=== PATIENT | male | born 1950 | race Caucasian/White ===

== ENCOUNTER 2018-07-26 13:16 | Inpatient (IN) | payer MEDICARE ==
[~2018-07-26] VITALS: Ht 177.8 cm; Wt 103.0 kg
[~2018-07-26 13:16] MED LIST: ALTACE10 MG PO; ASPIR 8181 MG PO; ATORVASTATIN CA20 MG PO; COUMADIN2.5 MG PO; FENOFIBRATE160 MG PO; GEMFIBROZIL600 MG PO; LASIX40 MG PO; LEVOTHROID125 MCG PO; MELOXICAM7.5 MG PO; METOPROLOL SUCC50 MG PO; ULTRAM50 MG PO; WARFARIN SODIUM3 MG PO; XARELTO20 MG PO
[2018-07-26 14:25] LABS: BASOPHILS # (AUTO) 0.1 (0.0-0.1); BASOPHILS % 1.1 % (0.0-1.0); EOSINOPHILS # (AUTO) 0.5 (0.0-0.4); EOSINOPHILS % 5.6 % (0.0-6.0); HEMATOCRIT 46.4 % (38.2-49.6); HEMOGLOBIN 16.2 g/dL (14.0-18.0); LYMPHOCYTES # (AUTO) 1.7 (1.0-3.2); LYMPHOCYTES % 20.6 % (18.0-39.1); MEAN CORPUSCULAR HEMOGLOBIN 29.7 pg (28-32); MEAN CORPUSCULAR HGB CONC 34.9 g/dL (31-35); MEAN CORPUSCULAR VOLUME 85.1 fL (81-99); MONOCYTES # (AUTO) 0.9 (0.2-0.8); MONOCYTES % 10.3 % (4.4-11.3); NEUTROPHILS # (AUTO) 5.2 (2.1-6.9); NEUTROPHILS % 61.9 % (38.7-80.0); PLATELET COUNT 369 x10e3/uL (140-360); RED BLOOD COUNT 5.45 x10e6/uL (4.3-5.7); RED CELL DISTRIBUTION WIDTH 13.4 % (11.7-14.4)
[2018-07-26 14:37] LABS: CLARITY,URINE CLEAR (CLEAR); COLOR,URINE YELLOW (YELLOW)
[2018-07-26 14:38] LABS: BILIRUBIN,URINE NEGATIVE (NEGATIVE); KETONES,URINE NEGATIVE (NEGATIVE); LEUKOCYTE ESTERASE ,URINE NEGATIVE (NEGATIVE); NITRITE,URINE NEGATIVE (NEGATIVE); PROTEIN,URINE DIPSTICK NEGATIVE (NEGATIVE); URINE UROBILINOGEN 0.2 mg/dL (0.2 - 1)
[2018-07-26 14:46] LABS: ANION GAP 24.3 mmol/L (8-16); CALCIUM 11.2 mg/dL (8.4-10.2); CREATININE, SERUM 2.7 mg/dL (0.72-1.25); POTASSIUM 4.3 mmol/L (3.5-5.1)
[2018-07-26 14:52] LABS: BACTERIA,URINE FEW /HPF; EPITHELIAL CELLS,URINE RARE /LPF
[2018-07-26 14:53] LABS: CALCIUM OXALATE CRYSTALS,UR FEW (FEW); TRANSITIONAL EPI CELLS,URINE RARE
[2018-07-26 14:56] LABS: CREATINE KINASE MB 1.7 ng/mL (0-5.0)
[2018-07-26] MEDS ORDERED: WARFARIN SODIUM2 MG PO (15:03)
[2018-07-26] MEDS ORDERED: Entresto PO (15:03)
[2018-07-26] MEDS ORDERED: AMIODARONE HCL200 MG PO (15:03)
[2018-07-26] MEDS ORDERED: WARFARIN SODIUM1 MG PO (15:03)
[2018-07-26 15:49] LABS: ABG HCO3 25 mmol/L (23-28); ABG PCO2 28 mmHg (41-51); ABG PH 7.56 (7.31-7.41); ABG PO2 76 mmHg (80-105)
--- NOTE | 2018-07-26 15:53 | Diagnostic Imaging Report ---
EXAM: CT CHEST WO DATE: 07/26/2018 1:50 PM INDICATION: \S\ARGUETA \[id number] \S\1535 shortness of breath. Weakness. COMPARISON: None FINDINGS: Please see same day CT abdomen for images and report. IMPRESSION: As above. Signed by: Dr. Maxwell Koo MD on 07/26/2018 3:50 PM
--- NOTE | 2018-07-26 16:00 | Diagnostic Imaging Report ---
EXAM: CT Chest, Abdomen and Pelvis WITHOUT contrast INDICATION: Weakness. Shortness of breath. COMPARISON: None. TECHNIQUE: Chest, Abdomen and Pelvis was scanned utilizing a multidetector helical scanner without the use of IV contrast. Coronal and sagittal reformations were obtained. Reformatted axial MIP images were obtained and reviewed. IV CONTRAST: None COMPLICATIONS: None RADIATION DOSE: Total DLP: 1062 mGy*cm Estimated effective dose: (DLP x 0.015 x size factor) mSv CTDIvol has been reviewed. It is below the limits set by the Radiation Protocol Committee (RPC). Appropriate CT dose reduction techniques were utilized. FINDINGS: Chest: Lower Neck: Left chest wall ICD with leads right atrial appendage and right ventricular apex. Heart and Great Vessels: The aorta and main pulmonary artery measure 37 and 29 mm. respectively. No pericardial effusion. Advanced coronary artery calcifications, poorly evaluated due to motion. Aberrant right subclavian artery incidentally noted. AP diameter left atrium 61 mm. Lymph Nodes: No suspicious mediastinal adenopathy by size criteria. The hilar regions are sub-optimally evaluated given lack of IV contrast. Lungs: No pneumothorax or pleural effusion present. Trachea and central bronchi are unremarkable. Scattered geographic groundglass opacities in the mid and lower lungs with subpleural reticulation in the right lower lobe and mild basilar bronchiectasis, most notably in the right lower lobe. Lack of prone imaging limits evaluation. Abdomen: Solid Organs: Gallstones present. Ill-defined calcification posterior aspect right hepatic lobe. Otherwise, nonenhanced images solid organs grossly unremarkable. Upper GI Tract: Decompressed stomach limits evaluation. No small bowel obstructive changes. Vascularity: Moderate aortic vascular calcifications with no aneurysm. Lymph Nodes: Minimal haziness central mesentery with scattered small lymph nodes. Other: Atherosclerotic changes mesenteric arteries. Pelvis: Bladder: Unremarkable. Other: Prostate not enlarged. Colon: Colonic evaluation limited given lack of enteric contrast. There is an area of questioned soft tissue fullness in the rectum. Appendix not inflamed. Bones: Advanced degenerative changes lumbar spine. IMPRESSION: 1. Poorly evaluated soft tissue fullness of the rectum. Direct visualization recommended as malignancy not excluded. 2. Scattered geographic groundglass opacities in the mid and lower lungs with bronchial wall thickening and mild bronchiectasis, most notably right lower lobe. Sequela of recurrent microaspiration or interstitial lung disease, such as fibrotic NSIP, could have similar imaging characteristics. Correlation recommended. High-resolution chest CT would be helpful for further evaluation. 3. Advanced coronary artery vascular calcifications and left atrial enlargement. 4. Cholelithiasis. Signed by: Dr. Maxwell Koo MD on 07/26/2018 3:57 PM
[2018-07-26] MEDS ORDERED: AZITHROMYCIN 500MG/SOD CHL 0.9% 250ML BAG IV SCH (17:30)
[2018-07-26] MEDS ORDERED: ASPIRIN 81 MG CHEW TAB PO ONE (17:30)
[2018-07-26] MEDS ORDERED: LEVOFLOXACIN 750MG/DEXTROSE PREMIX BAG 150ML IV SCH (17:30)
[2018-07-26] MEDS ORDERED: LEVOFLOXACIN 750MG/D5W 150ML 150 ML IV SCH (17:45)
[2018-07-26] MEDS: AZITHROMYCIN 500MG/NS 250 ML 250 ML IV SCH (20:01)
[2018-07-26 21:00] VITALS: BP 102/72
[2018-07-26 23:02] LABS: CREATINE KINASE MB 1.3 ng/mL (0-5.0)
[2018-07-26 23:26] VITALS: BP 102/72
[2018-07-26 23:46] VITALS: BP 102/72
[2018-07-27] VITALS (9 sets, daily range): BP systolic 84–112; BP diastolic 49–62
[2018-07-27 05:00] LABS: BASOPHILS % 0.5 % (0.0-1.0); EOSINOPHILS # (AUTO) 0.4 (0.0-0.4); HEMATOCRIT 37.3 % (38.2-49.6); HEMOGLOBIN 13.1 g/dL (14.0-18.0); LYMPHOCYTES # (AUTO) 1.5 (1.0-3.2); LYMPHOCYTES % 20.9 % (18.0-39.1); MEAN CORPUSCULAR HEMOGLOBIN 30.4 pg (28-32); MEAN CORPUSCULAR HGB CONC 35.1 g/dL (31-35); MEAN CORPUSCULAR VOLUME 86.5 fL (81-99); MONOCYTES # (AUTO) 0.6 (0.2-0.8); NEUTROPHILS # (AUTO) 4.7 (2.1-6.9); NEUTROPHILS % 64.1 % (38.7-80.0); PLATELET COUNT 239 x10e3/uL (140-360); RED BLOOD COUNT 4.31 x10e6/uL (4.3-5.7); RED CELL DISTRIBUTION WIDTH 13.5 % (11.7-14.4)
[2018-07-27 05:36] LABS: CREATINE KINASE MB 1.2 ng/mL (0-5.0)
[2018-07-27] MEDS ORDERED: WARFARIN SOD 2 MG TAB PO SCH (07:00)
[2018-07-27 08:00] LABS: INR 1.86; PROTHROMBIN TIME 22.9 seconds (11.9-14.5)
[2018-07-27] MEDS: SODIUM CHLORIDE 0.9% 1000ML 1,000 ML IV SCH (08:00)
[2018-07-27] MEDS: FAMOTIDINE 20 MG TAB PO SCH ×2 (08:00→16:44)
[2018-07-27] MEDS: ASPIRIN 81 MG CHEW TAB PO SCH (08:00)
[2018-07-27] MEDS: FENOFIBRATE 145 MG TAB PO SCH (08:00)
[2018-07-27] MEDS: METHYLPREDNISOLONE SOD SUCC 40 MG/ML VIAL IV SCH (08:00)
[2018-07-27] MEDS: AMIODARONE HCL 200 MG TAB PO SCH (08:00)
--- NOTE | 2018-07-27 08:08 | History and Physical ---
PRIMARY CARE PHYSICIAN: Dr. Ramirez TIMBER INCISOR OPERATOR: Dr. Dick CHIEF COMPLAINT: Shortness of breath and weakness. HISTORY OF PRESENT ILLNESS: This is a 68-year-old man with a history of atrial fibrillation, now developing shortness of breath and weakness for the past week. No cough. No fever, chills, nausea, vomiting, diarrhea. No leg edema. He also noticed blood pressure was . He was found to have pulmonary findings with ground-glass opacities and signs of pneumonia. He was admitted for further evaluation and management. PAST MEDICAL HISTORY: Atrial fibrillation on anticoagulation with Coumadin, systolic congestive heart failure with status post AICD placement, hypertension, myocardial infarction in 2005, status post 4 coronary stents, hypothyroidism, hyperlipidemia, cigarette use. PAST SURGICAL HISTORY: AICD placement, coronary stent placement x4 in 2005, and left knee replacement. ALLERGIES: PER ELECTRONIC MEDICAL RECORDS. FAMILY HISTORY/SOCIAL HISTORY: Patient is . He has 2 children. Occasional alcohol. No illicits. He quit cigarettes in 2005. 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 MEDICATIONS: Per electronic medical record. REVIEW OF SYSTEMS: Denies any dizziness, chest pain. Denies any fever, sweats, nausea, vomiting, diarrhea, leg pain, back pain, headache, vision changes. PHYSICAL EXAMINATION VITAL SIGNS: Reviewed. GENERAL: A tired-appearing man resting in bed. HEENT: Anicteric. Pupils respond to light. No oral lesions. CARDIOVASCULAR: Normal S1, S2. LUNGS: He has reduced breath sounds throughout. ABDOMEN: Soft, nontender, nondistended. EXTREMITIES: No edema or calf tenderness. NEUROLOGIC: Alert and oriented x3. Moves all extremities. SKIN: Dry. PSYCHIATRIC: Normal affect. LABS: Reviewed. MEDICATIONS: Reviewed. ASSESSMENT AND PLAN: This is a 68-year-old man. 1. Pneumonia. 2. Pneumonitis. 3. Hypotension. 4. Hyponatremia. 5. Atrial fibrillation. 6. Systolic congestive heart failure, which is euvolemic. 7. Acute kidney injury. 8. Hyperlipidemia. 9. Hypothyroidism. 10. Obesity. PLAN 1. Broad-spectrum antibiotic. 2. Obtain sputum culture. 3. Urine for Strep and Legionella antigen. 4. Start steroid therapy for pneumonitis. 5. Hold Lasix. 6. Give some fluids for acute kidney injury. 7. Monitor fluid status. 8. Obtain brain natriuretic peptide to assist in managing fluid status. 9. Obtain labs later today for basic metabolic panel. 10. Obtain INR daily. 11. Add Pepcid for GI prophylaxis, on anticoagulation. 12. Follow closely. 13. Follow up labs. Job#: [id number] CQ
[2018-07-27] MEDS ORDERED: FUROSEMIDE 40 MG TAB PO SCH (09:00)
[2018-07-27] MEDS ORDERED: METOPROLOL SUCCINATE 50 MG TAB XL PO SCH (09:00)
[2018-07-27] MEDS ORDERED: LEVOTHYROXINE SODIUM 125 MCG TAB PO SCH (09:00)
[2018-07-27] MEDS ORDERED: NON-FORMULARY MEDICATION (Fenofibrate 160 MG) PO SCH (09:00)
[2018-07-27] MEDS ORDERED: SODIUM CHLORIDE 0.9% 500ML 500 ML IV ONE (12:45)
--- NOTE | 2018-07-27 12:53 | Diagnostic Imaging Report ---
EXAM: Bilateral Renal Ultrasound INDICATION: MARIA ELENA vs CKD COMPARISON: CT Abdomen/Pelvis 07/26/18. TECHNIQUE: Transverse and longitudinal images of the kidneys and bladder were obtained. FINDINGS: Right Kidney: Length: Right kidney measures 12 cm Appearance: Normal echogenicity. Collecting system: No hydronephrosis Stones: None Cyst/Mass: None Left Kidney: Length: Left kidney measures 12.1 cm Appearance: Normal echogenicity. Collecting system: No hydronephrosis Stones: None Cyst/Mass: None Bladder: Unremarkable in appearance. Bilateral ureteral jets are not seen. Prostate: Unremarkable in appearance. Total volume is 15.2 cc. IMPRESSION: Unremarkable bilateral renal ultrasound. Signed by: Dr. Alena Mueller MD on 07/27/2018 12:50 PM
[2018-07-27 14:13] LABS: CREATINE KINASE MB 1.1 ng/mL (0-5.0)
[2018-07-27 15:19] LABS: ANION GAP 18.4 mmol/L (8-16); CALCIUM 9.5 mg/dL (8.4-10.2); CREATININE, SERUM 2.43 mg/dL (0.72-1.25); POTASSIUM 3.4 mmol/L (3.5-5.1)
[2018-07-27] MEDS: WARFARIN SOD 2 MG TAB PO SCH (16:44)
[2018-07-27] MEDS: AZITHROMYCIN 500MG/NS 250 ML 250 ML IV SCH (16:45)
[2018-07-27] MEDS ORDERED: ATORVASTATIN 20 MG TAB PO SCH (21:00)
[2018-07-28] VITALS (7 sets, daily range): BP systolic 96–166; BP diastolic 55–69
[2018-07-28] MEDS: LEVOTHYROXINE SODIUM 125 MCG TAB PO SCH (05:22)
[2018-07-28 05:41] LABS: BASOPHILS % 0.4 % (0.0-1.0); EOSINOPHILS % 0.3 % (0.0-6.0); HEMATOCRIT 35.8 % (38.2-49.6); HEMOGLOBIN 12.2 g/dL (14.0-18.0); LYMPHOCYTES # (AUTO) 1.2 (1.0-3.2); LYMPHOCYTES % 10.2 % (18.0-39.1); MEAN CORPUSCULAR HEMOGLOBIN 30.1 pg (28-32); MEAN CORPUSCULAR HGB CONC 34.1 g/dL (31-35); MEAN CORPUSCULAR VOLUME 88.4 fL (81-99); MONOCYTES # (AUTO) 0.6 (0.2-0.8); MONOCYTES % 5.7 % (4.4-11.3); NEUTROPHILS # (AUTO) 9.4 (2.1-6.9); PLATELET COUNT 237 x10e3/uL (140-360); RED BLOOD COUNT 4.05 x10e6/uL (4.3-5.7); RED CELL DISTRIBUTION WIDTH 13.3 % (11.7-14.4)
[2018-07-28 05:56] LABS: INR 1.93; PROTHROMBIN TIME 23.6 seconds (11.9-14.5)
[2018-07-28 06:05] LABS: ANION GAP 15.3 mmol/L (8-16); CALCIUM 9.7 mg/dL (8.4-10.2); CREATININE, SERUM 1.78 mg/dL (0.72-1.25); POTASSIUM 3.3 mmol/L (3.5-5.1)
[2018-07-28] MEDS: FAMOTIDINE 20 MG TAB PO SCH ×2 (08:00→16:30)
[2018-07-28] MEDS: METHYLPREDNISOLONE SOD SUCC 40 MG/ML VIAL IV SCH (08:00)
[2018-07-28] MEDS: AMIODARONE HCL 200 MG TAB PO SCH (08:00)
[2018-07-28] MEDS: ASPIRIN 81 MG CHEW TAB PO SCH (08:00)
[2018-07-28] MEDS: FENOFIBRATE 145 MG TAB PO SCH (08:00)
[2018-07-28] MEDS ORDERED: POTASSIUM CHLORIDE 20 MEQ TAB CR PO STA (10:06)
[2018-07-28] MEDS: SODIUM CHLORIDE 0.9% 1000ML 1,000 ML IV SCH (11:30)
[2018-07-28] MEDS ORDERED: INFLUENZA VIRUS VAC SPLIT INJ 0.5 ML SYR IM NR (12:45)
[2018-07-28] MEDS ORDERED: PNEUMOCOCCAL VACCINE POLYVALENT 23 MCG/0.5 ML VIAL IM NR (12:45)
[2018-07-28] MEDS ORDERED: SODIUM CHLORIDE 0.9% 1000ML 1,000 ML ONE (16:23)
[2018-07-28] MEDS ORDERED: SODIUM CHLORIDE 0.9% 1000ML 1,000 ML IV SCH (16:30)
[2018-07-28] MEDS: WARFARIN SOD 2 MG TAB PO SCH (16:37)
[2018-07-28] MEDS ORDERED: INFLUENZA VIRUS VAC SPLIT INJ 0.5 ML SYR IM ONE (17:00)
[2018-07-28] MEDS ORDERED: PNEUMOCOCCAL VACCINE POLYVALENT 23 MCG/0.5 ML VIAL IM ONE (17:00)
[2018-07-28] MEDS: AZITHROMYCIN 500MG/NS 250 ML 250 ML IV SCH (17:45)
[2018-07-28] MEDS ORDERED: ATORVASTATIN 10 MG TAB PO SCH (21:00)
[2018-07-29] VITALS: BP 111/58
[2018-07-29 05:00] VITALS: BP 115/63
[2018-07-29] MEDS: LEVOTHYROXINE SODIUM 125 MCG TAB PO SCH (05:52)
[2018-07-29 06:14] LABS: BASOPHILS % 0.3 % (0.0-1.0); EOSINOPHILS % 0.2 % (0.0-6.0); HEMATOCRIT 35.8 % (38.2-49.6); HEMOGLOBIN 12.1 g/dL (14.0-18.0); LYMPHOCYTES # (AUTO) 1.3 (1.0-3.2); LYMPHOCYTES % 9.7 % (18.0-39.1); MEAN CORPUSCULAR HEMOGLOBIN 30.3 pg (28-32); MEAN CORPUSCULAR HGB CONC 33.8 g/dL (31-35); MEAN CORPUSCULAR VOLUME 89.7 fL (81-99); MONOCYTES # (AUTO) 0.7 (0.2-0.8); MONOCYTES % 4.9 % (4.4-11.3); NEUTROPHILS # (AUTO) 11.1 (2.1-6.9); NEUTROPHILS % 84.5 % (38.7-80.0); PLATELET COUNT 237 x10e3/uL (140-360); RED BLOOD COUNT 3.99 x10e6/uL (4.3-5.7); RED CELL DISTRIBUTION WIDTH 13.3 % (11.7-14.4)
[2018-07-29 06:27] LABS: PROTHROMBIN TIME 24.2 seconds (11.9-14.5)
[2018-07-29 06:32] LABS: ANION GAP 17.1 mmol/L (8-16); CALCIUM 9.7 mg/dL (8.4-10.2); CREATININE, SERUM 1.36 mg/dL (0.72-1.25); POTASSIUM 4.1 mmol/L (3.5-5.1)
[2018-07-29] MEDS ORDERED: CEFUROXIME250 MG PO (07:05)
[2018-07-29] MEDS ORDERED: PREDNISONE20 MG PO (07:05)
[2018-07-29] MEDS ORDERED: TESSALON PERLE100 MG PO (07:05)
[2018-07-29 07:40] VITALS: BP 111/60
[2018-07-29] MEDS: FAMOTIDINE 20 MG TAB PO SCH (08:16)
[2018-07-29] MEDS: AMIODARONE HCL 200 MG TAB PO SCH (08:16)
[2018-07-29] MEDS: METHYLPREDNISOLONE SOD SUCC 40 MG/ML VIAL IV SCH (08:16)
[2018-07-29] MEDS: FENOFIBRATE 145 MG TAB PO SCH (08:16)
[2018-07-29] MEDS: ASPIRIN 81 MG CHEW TAB PO SCH (08:16)
[2018-07-29] MEDS ORDERED: CEFEPIME HCL 1 GM VIAL IV SCH (09:00)
--- NOTE | 2018-07-30 06:49 | Discharge Summary ---
PRINCIPAL DIAGNOSES 1. Pneumonia. 2. Pneumonitis. 3. Hypotension. 4. Hyponatremia. 5. Acute kidney injury. SECONDARY DIAGNOSIS: Systolic congestive heart failure, euvolemic. CHIEF COMPLAINT AND HISTORY OF PRESENT ILLNESS: Please refer to the H and P. HOSPITAL COURSE: The patient was found to have pneumonia and pneumonitis and was treated with antibiotics and IV steroids. He also had hypotension. Lasix was held and he received IV fluids. He had atrial fibrillation, rate controlled. He had acute kidney injury. Renal function continues to improve with IV fluids. I have encouraged him to drink water at home when he is discharged. The patient did well, subsequently discharged to home with antibiotics. Patient's INR was near therapeutic. DISCHARGE MEDICATIONS: Per electronic medical record. FOLLOW-UP: Follow up with primary care doctor in 1 week. CONDITION ON DISCHARGE: Stable and improving. DISCHARGE LOCATION: Home. Job#: [id number] ELSA
--- NOTE | 2018-07-30 07:04 | Progress Note ---
DATE: July 28, 2018 TIME: 7:40 a.m. OVERNIGHT: Feeling better. REVIEW OF SYSTEMS: Denies any dizziness or chest pain. PHYSICAL EXAMINATION VITAL SIGNS: Reviewed. GENERAL APPEARANCE: A tired-appearing man, resting in bed. HEENT: Anicteric. CARDIOVASCULAR: Normal S1 and S2. LUNGS: He has reduced breath sounds, improve in aeration. ABDOMEN: Soft, nontender, and nondistended. EXTREMITIES: No edema. SKIN: Dry. PSYCHIATRIC: Flat affect. LABS: Reviewed. MEDICATIONS: Reviewed. ASSESSMENT: A 68-year-old man with: 1. Pneumonia. 2. Pneumonitis. 3. Hypotension. 4. Hyponatremia. 5. Atrial fibrillation. 6. Systolic congestive heart failure, which is euvolemic. 7. Acute kidney injury. 8. Hyperlipidemia. 9. Hypothyroidism. 10. Obesity. PLAN 1. Continue antibiotics. 2. Continue IV fluids. 3. Renal function improving. 4. Continue to hold Lasix. 5. Continue steroid therapy. 6. Monitor closely and reassess labs in the morning for renal function. 7. Replace potassium. Job#: [id number] MASSIMO
--- OUTSIDE RECORDS SUMMARY | 2018-08-01 12:40 | XMS REPORT ---
Author [facility] Address Unknown Phone Unavailable Care Team Providers Care [employer]allurg[facility] Laboratory Technician Name Role Phone ALETA MURRAY Unavailable Unavailable Payers Payer Name Policy Type Policy Number Effective Date Expiration Date Problems This patient has no known problems. Allergies, Adverse Reactions, Alerts Allergy Name Allergy Type Status Severity Reaction(s) Onset Date Inactive Date Treating Clinician Comments No Known Allergies DA Active U 2018-07-19 00:00:00 No Known Allergies DA Active U 2017-07-10 00:00:00 Medications This patient has no known medications. Results Test Description Test Time Test Comments Text Results Atomic Results Result Comments US RENAL RETROPERITONEAL COMP 2018-07-27 12:47:00 [place] [address] Patient Name: TREVOR HUITRON MR #: [id number] : 1950 Age/Sex: 68/M Req #: [id number] Adm Physician: ALETA MURRAY MD Ordered by: ALETA MURRAY MD Report #: [id number] Location: MED/SURG3 Room/Bed: [facility] Procedure: [id number] US/US RENAL RETROPERITONEAL COMP Exam Date: Exam Time: REPORT STATUS: Signed EXAM: Bilateral Renal Ultrasound INDICATION: MARIA ELENA vs CKD COMPARISON: CT Abdomen/Pelvis 07/26/18. TECHNIQUE: Transverse and longitudinal images of the kidneys and bladder were obtained. FINDINGS: Right Kidney: Length: Right kidney measures 12 cm Appearance: Normal echogenicity. Collecting system: No hydronephrosis Stones: None Cyst/Mass: None Left Kidney: Length: Left kidney measures 12.1 cm Appearance: Normal echogenicity. Collecting system: No hydronephrosis Stones: None Cyst/Mass: None Bladder: Unremarkable in appearance. Bilateral ureteral jets are not seen. Prostate: Unremarkable in appearance. Total volume is 15.2 cc. IMPRESSION: Unremarkable bilateral renal ultrasound. Signed by: Dr. Pawan Bundy MD on 07/27/2018 12:50 PM Dictated By: PAWAN BUNDY MD 1250 Transcribed By: CRISTINA on 07/27/18 1250 COPY TO: ALETA MURRAY MD CT ABDOMEN/PELVIS WO 2018-07-26 15:50:00 [place] [address] Patient Name: TREVOR HUITRON MR #: [id number] : 1950 Age/Sex: 68/M Req #: [id number] Adm Physician: Ordered by: ALEJANDRO ALAS MD Report #: [id number] Location: ER Room/Bed: Procedure: [id number] CT/CT ABDOMEN/PELVIS WO Exam Date: 07/26/18 Exam Time: 1535 REPORT STATUS: Signed EXAM: CT Chest, Abdomen and Pelvis WITHOUT contrast INDICATION: Weakness. Shortness of breath. COMPARISON: None. TECHNIQUE: Chest, Abdomen and Pelvis was scanned utilizing a multidetector helical scanner without the use of IV contrast. Coronal and sagittal reformations were obtained. Reformatted axial MIP images were obtained and reviewed. IV CONTRAST: None COMPLICATIONS: None RADIATION DOSE: Total DLP: 1062 mGy*cm Estimated effective dose: (DLP x 0.015 x size factor) mSv CTDIvol has been reviewed. It is below the limits set by the Radiation Protocol Committee (RPC). Appropriate CT dose reduction techniques were utilized. FINDINGS: Chest: Lower Neck: Left chest wall ICD with leads right atrial appendage and right ventri cular apex. Heart and Great Vessels: The aorta and main pulmonary artery measure 37 and 29 mm. respectively. No pericardial effusion. Advanced coronary artery calcifications, poorly evaluated due to motion. Aberrant right subclavian artery incidentally noted. AP diameter left atrium 61 mm. Lymph Nodes: No suspicious mediastinal adenopathy by size criteria. The hilar regions are sub-optimally evaluated given lack of IV contrast. Lungs: No pneumothorax or pleural effusion present. Trachea and central bronchi are unremarkable. Scattered geographic groundglass opacities in the mid and lower lungs with subpleural reticulation in the right lower lobe and mild basilar bronchiectasis, most notably in the right lower lobe. Lack of prone imaging limits evaluation. Abdomen: Solid Organs: Gallstones present. Ill-defined calcification posterior aspect right hepatic lobe. Otherwise, nonenhanced images solid organs grossly unremarkable. Upper GI Tract: Decompressed stomach limits evaluation. No small bowel obstructive changes. Vascularity: Moderate aortic vascular calcifications with no aneurysm. Lymph Nodes: Minimal haziness central mesentery with scattered small lymph nodes. Other: Atherosclerotic changes mesenteric arteries. Pelvis: Bladder: Unremarkable. Other: Prostate not enlarged. Colon: Colonic evaluation limited given lack of enteric contrast. There is an area of questioned soft tissue fullness in the rectum. Appendix not inflamed. Bones: Advanced degenerative changes lumbar spine. IMPRESSION: 1. Poorly evaluated soft tissue fullness of the rectum. Direct visualization recommended as malignancy not excluded. 2. Scattered geographic groundglass opacities in the mid and lower lungs with bronchial wall thickening and mild bronchiectasis, most notably right lower lobe. Sequela of recurrent microaspiration or interstitial lung disease, such as fibrotic NSIP, could have similar imaging characteristics. Correlation recommended. High- resolution chest CT would be helpful for further evaluation. 3. Advanced coronary artery vascular calcifications and left atrial enlargement. 4. Cholelithiasis. Signed by: Dr. Maxwell Koo MD on 07/26/2018 3:57 PM Dictated By: MAXWELL KOO MD 56 Transcribed By: CRISTINA on 07/26/181556 COPY TO: ALEJANDRO ALAS MD CT CHEST WO 2018-07-26 15:49:00 [place] [address] Patient Name: TREVOR HUITRON MR #: [id number] : 1950 Age/Sex: 68/M Req #: [id number] Adm Physician: Ordered by: ALEJANDRO ALAS MD Report #: [id number] Location: ER Room/Bed: Procedure: [id number] CT/CT CHEST WO Exam Date: 07/26/18 Exam Time: 1535 REPORT STATUS: Signed EXAM: CT CHEST WO DATE: 07/26/2018 1:50 PM INDICATION: COMPARISON: None FINDINGS: Please see same day CT abdomen for images and report. IMPRESSION: As above. Signed by: Dr. Maxwell Koo MD on 07/26/2018 3:50 PM Dictated By: MAXWELL KOO MD 49 Transcribed By: CRISTINA on 07/26/181549 COPY TO: ALEJNADRO ALAS MD
== END 2018-07-29 10:01 | disposition home or self-care (01) | DRG 194 ==
LOC: ER 13:16 → ERHOLD 17:37 → MED/SURG3 20:43
PROVIDERS: ADMIT Internal Medicine; ATTEND Internal Medicine
DX: J18.9 Pneumonia, unspecified organism (principal); E87.1 Hypo-osmolality and hyponatremia; N17.9 Acute kidney failure, unspecified; I50.22 Chronic systolic (congestive) heart failure; I95.9 Hypotension, unspecified; I48.91 Unspecified atrial fibrillation; E86.0 Dehydration; E78.5 Hyperlipidemia, unspecified; E66.9 Obesity, unspecified; Z68.32 Body mass index [BMI] 32.0-32.9, adult; Z79.01 Long term (current) use of anticoagulants; I25.10 Atherosclerotic heart disease of native coronary artery without angina pectoris; I11.0 Hypertensive heart disease with heart failure; Z87.891 Personal history of nicotine dependence; Z95.810 Presence of automatic (implantable) cardiac defibrillator; E03.9 Hypothyroidism, unspecified; Z79.52 Long term (current) use of systemic steroids; I25.2 Old myocardial infarction; Z95.5 Presence of coronary angioplasty implant and graft
CPT/HCPCS: 36415; 36600; 71250; 74176; 76770; 80048; 81001; 82550; 82553; 82805; 83690; 83880; 84484; 85025; 85610; 87040; 87449; 90732; 93005; 99284; J0456; J0692; J2920; J7030; J7040

== ENCOUNTER 2019-08-20 14:51 | Inpatient (IN) | payer MEDICARE ==
[~2019-08-20] VITALS: Ht 172.7 cm; Wt 102.1 kg
[~2019-08-20 14:51] MED LIST changes: +AMIODARONE HCL200 MG PO; +CEFUROXIME250 MG PO; +Entresto PO; +PREDNISONE20 MG PO; +TESSALON PERLE100 MG PO; +WARFARIN SODIUM1 MG PO; +WARFARIN SODIUM2 MG PO
--- NOTE | 2019-08-20 15:55 | NUR ---
PT INFORMED OF ORDERS TO COLLECT UA, VERBALIZED UNDERSTANDING, URINAL AND SPECIMEN PROVIDED AT BEDSIDE.
[2019-08-20 16:12] LABS: BASOPHILS # (AUTO) 0.1 (0.0-0.1); BASOPHILS % 0.3 % (0.0-1.0); EOSINOPHILS # (AUTO) 0.1 (0.0-0.4); EOSINOPHILS % 0.6 % (0.0-6.0); HEMOGLOBIN 10.5 g/dL (14.0-18.0); LYMPHOCYTES # (AUTO) 0.5 (1.0-3.2); LYMPHOCYTES % 2.8 % (18.0-39.1); MEAN CORPUSCULAR HEMOGLOBIN 30.4 pg (28-32); MEAN CORPUSCULAR HGB CONC 33.9 g/dL (31-35); MEAN CORPUSCULAR VOLUME 89.9 fL (81-99); MONOCYTES # (AUTO) 0.8 (0.2-0.8); MONOCYTES % 4.5 % (4.4-11.3); NEUTROPHILS # (AUTO) 16.7 (2.1-6.9); NEUTROPHILS % 91.1 % (38.7-80.0); PLATELET COUNT 235 x10e3/uL (140-360); RED BLOOD COUNT 3.45 x10e6/uL (4.3-5.7); RED CELL DISTRIBUTION WIDTH 15.6 % (11.7-14.4)
[2019-08-20 16:27] LABS: ALBUMIN 3.5 g/dL (3.5-5.0); ALBUMIN/GLOBULIN RATIO 1.2 (0.8-2.0); CALCIUM 9.4 mg/dL (8.4-10.2); CREATININE, SERUM 2.75 mg/dL (0.72-1.25)
--- NOTE | 2019-08-20 16:36 | NUR ---
PT BLOOD GLUCOSE 55 PER FINGERSTICK; PT DENIES S/S AT THIS TIME; GIVEN TWO OJ, 2 PACKS OF DANDRE CRACKERS, AND JELLO, TOLERATING WELL AT THIS TIME, INFORMED PRIMARY NURSE DEEDEE MILLER; AT BEDSIDE, CALL LIGHT IN EASY REACH, WILL CONTINUE TO MONITOR.
[2019-08-20 16:44] LABS: BILIRUBIN,URINE NEGATIVE (NEGATIVE); CLARITY,URINE CLEAR (CLEAR); COLOR,URINE YELLOW (YELLOW); KETONES,URINE NEGATIVE (NEGATIVE); LEUKOCYTE ESTERASE ,URINE NEGATIVE (NEGATIVE); NITRITE,URINE NEGATIVE (NEGATIVE); PROTEIN,URINE DIPSTICK 1+ (NEGATIVE); URINE UROBILINOGEN 0.2 mg/dL (0.2 - 1)
[2019-08-20 16:57] LABS: BACTERIA,URINE MODERATE /HPF; EPITHELIAL CELLS,URINE RARE /LPF
--- NOTE | 2019-08-20 16:57 | Diagnostic Imaging Report ---
EXAMINATION: CHEST SINGLE (PORTABLE) INDICATION: Shortness of breath COMPARISON: CT abdomen and pelvis of 07/26/2018 FINDINGS: LINES/TUBES:EKG leads overlie the chest. Left chest pacer. LUNGS:The lungs are well-inflated. There is perihilar fullness and indistinctness of the pulmonary vasculature. PLEURA:No pleural effusion or pneumothorax. MEDIASTINUM:The heart is enlarged. Atherosclerotic calcifications of the thoracic aorta. BONES/SOFT TISSUES:No acute osseous injury. ABDOMEN:No free air under the diaphragm. IMPRESSION: Cardiomegaly and mild interstitial pulmonary edema. Signed by: Serena Espinoza MD on 08/20/2019 4:53 PM
[2019-08-20] MEDS ORDERED: CLINDAMYCIN PHOS 900MG/ 50ML 50 ML IV STA (17:25)
[2019-08-20] MEDS ORDERED: FUROSEMIDE INJ 10 MG/ML 4 ML VIAL IV ONE (17:30)
[2019-08-20] MEDS ORDERED: CEFEPIME HCL 1 GM VIAL IV SCH (19:45)
[2019-08-20] MEDS ORDERED: CEFEPIME 1GM/NS 0.9% 50 ML 50 ML IV ONE (20:00)
[2019-08-20 21:30] VITALS: BP 102/64
--- NOTE | 2019-08-20 21:30 | NUR ---
RECEIVED PATIENT FROM ER VIA STRETCHER. HE IS AWAKE, ALERT AND ABLE TO MAKE NEEDS KNOWN. PT TRANSFERRED SELF TO BED WITH STANDBY ASSISTANCE ONLY. POC DISCUSSED. BED IN LOWEST POSITION, LOCKED AND CALL RAMOS WITHIN REACH.
[2019-08-20] MEDS ORDERED: FUROSEMIDE40 MG PO (21:59)
[2019-08-20] MEDS ORDERED: ALDACTONE25 MG PO (21:59)
[2019-08-20 22:48] LABS: INR 3.68; PROTHROMBIN TIME 37.3 seconds (11.9-14.5)
[2019-08-20] MEDS: CLINDAMYCIN 300MG 50 ML IV SCH (22:55)
[2019-08-20 23:27] VITALS: BP 103/70
[2019-08-21] VITALS (7 sets, daily range): BP systolic 77–104; BP diastolic 49–67
[2019-08-21 05:17] LABS: BASOPHILS % 0.2 % (0.0-1.0); EOSINOPHILS % 0.2 % (0.0-6.0); HEMATOCRIT 27.1 % (38.2-49.6); HEMOGLOBIN 9.1 g/dL (14.0-18.0); LYMPHOCYTES # (AUTO) 0.4 (1.0-3.2); LYMPHOCYTES % 2.1 % (18.0-39.1); MEAN CORPUSCULAR HEMOGLOBIN 30.1 pg (28-32); MEAN CORPUSCULAR HGB CONC 33.6 g/dL (31-35); MEAN CORPUSCULAR VOLUME 89.7 fL (81-99); MONOCYTES # (AUTO) 1.1 (0.2-0.8); MONOCYTES % 6.1 % (4.4-11.3); NEUTROPHILS # (AUTO) 15.9 (2.1-6.9); NEUTROPHILS % 89.2 % (38.7-80.0); PLATELET COUNT 233 x10e3/uL (140-360); RED BLOOD COUNT 3.02 x10e6/uL (4.3-5.7); RED CELL DISTRIBUTION WIDTH 15.4 % (11.7-14.4)
[2019-08-21 05:36] LABS: ALBUMIN 3.1 g/dL (3.5-5.0); ALBUMIN/GLOBULIN RATIO 1.2 (0.8-2.0); ANION GAP 16.4 mmol/L (8-16); CALCIUM 8.9 mg/dL (8.4-10.2); CREATININE, SERUM 2.88 mg/dL (0.72-1.25); POTASSIUM 4.4 mmol/L (3.5-5.1)
--- NOTE | 2019-08-21 06:00 | NUR ---
PRIMARY CARE PHYSICIAN: Dr. Ramirez ALLERGY AND IMMUNOLOGY SPECIALIST: Dr. Dick CHIEF COMPLAINT: Shortness of breath and weakness. HISTORY OF PRESENT ILLNESS: This is a 68-year-old man developed leg swelling; no cp/sob. PAST MEDICAL HISTORY: Atrial fibrillation on anticoagulation with Coumadin, systolic congestive heart failure with status post AICD placement, hypertension, myocardial infarction in 2006, status post 4 coronary stents, hypothyroidism, hyperlipidemia, cigarette use, PNA, Pneumonitis, MARIA ELENA. PAST SURGICAL HISTORY: AICD placement, coronary stent placement x4 in 2006, and left knee replacement. ALLERGIES: PER ELECTRONIC MEDICAL RECORDS. FAMILY HISTORY/SOCIAL HISTORY: Patient is . He has 2 children. Occasional alcohol. No illicits. He quit cigarettes in 2006. 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 MEDICATIONS: Per electronic medical record. REVIEW OF SYSTEMS: Denies any dizziness, chest pain. Denies any fever, sweats, nausea, vomiting, diarrhea, leg pain, back pain, headache, vision changes. PHYSICAL EXAMINATION VITAL SIGNS: Reviewed. GENERAL: A tired-appearing man resting in bed. HEENT: Anicteric. Pupils respond to light. No oral lesions. CARDIOVASCULAR: Normal S1, S2. LUNGS: He has reduced breath sounds throughout. ABDOMEN: Soft, nontender, nondistended. EXTREMITIES: 1+ LEG EDEMA LEFT LEG, 2+ LEG EDEMA RIGHT LEGS; R>L NEUROLOGIC: Alert and oriented x3. Moves all extremities. SKIN: Dry. PSYCHIATRIC: Normal affect. LABS: Reviewed. MEDICATIONS: Reviewed. ASSESSMENT AND PLAN: This is a 68-year-old man. Sepsis Hyponatremia Cellulitis of forelegs MARIA ELENA Coagulopathy Pulmonary edema AECHF-systolic PAF Hypothyroidism CKD3 due to DM2 HLD PLAN IV abx; check leg doppler U/S hold antiHTN meds recheck inr; hold coumadin pepcid on AC Michael Mcbride MD, PhD.
[2019-08-21] MEDS: CLINDAMYCIN 300MG 50 ML IV SCH ×3 (06:09→21:50)
[2019-08-21 06:25] LABS: CHOL/HDL RATIO 2.4 (3.9-4.7)
[2019-08-21 06:51] LABS: INR 4.83
[2019-08-21] MEDS ORDERED: ACETAMINOPHEN 325 MG TAB PO PRN (07:00)
[2019-08-21] MEDS: LEVOTHYROXINE SODIUM 125 MCG TAB PO SCH (07:07)
--- NOTE | 2019-08-21 07:09 | NUR ---
Dr. Garcia consult called.
--- NOTE | 2019-08-21 07:26 | NUR ---
Primary nurse aware of critical PT 46.0 that was called by lab.
[2019-08-21] MEDS ORDERED: PHYTONADIONE 10 MG/ML AMP PO ONE (08:45)
[2019-08-21] MEDS ORDERED: FUROSEMIDE INJ 10 MG/ML 2 ML VIAL IV SCH (09:00)
[2019-08-21] MEDS ORDERED: FENOFIBRATE 160 MG PO SCH (09:00)
[2019-08-21] MEDS ORDERED: SODIUM CHLORIDE 0.9% 1000ML 1,000 ML IV SCH (10:00)
[2019-08-21] MEDS: ASPIRIN 81 MG CHEW TAB PO SCH (10:28)
[2019-08-21] MEDS: MIDODRINE HCL 5 MG TABLET PO SCH ×3 (10:29→21:50)
--- NOTE | 2019-08-21 12:08 | Diagnostic Imaging Report ---
EXAM: Renal Ultrasound INDICATION: ^acute kidney injury ^[id number] ^1026 COMPARISON: Renal ultrasound of 07/27/2018 TECHNIQUE: Transverse and longitudinal images of the kidneys and bladder were obtained. FINDINGS: Right Kidney: Length: 10.9 cm Appearance: Normal echogenicity. Collecting system: No hydronephrosis Stones: None Cyst/Mass: None Left Kidney: Length: 11.1 cm Appearance: Normal echogenicity. Collecting system: No hydronephrosis Stones: None Cyst/Mass: None Bladder: No mass or calculi. Right ureteral jet visualized. Prevoid volume estimate of 37.2 cc. IMPRESSION: No hydronephrosis or renal calculi. Signed by: Serena Espinoza MD on 08/21/2019 12:05 PM
--- NOTE | 2019-08-21 13:40 | NUR ---
Visit made by the Spiritual Care Department Pastoral Visitor, Ruth Britton. PV provided pastoral presence, hospitality, and supportive listening. Pastoral Visitor informed pt/family of the scope of Instrument And Controls Technician Services and availability. SARKIS WORRELL [employer] Worker Spiritual Care Department O: [phone] Pager: [phone] ([phone] number calling from)
--- NOTE | 2019-08-21 14:52 | NUR ---
WOUND CARE CONSULT 69 YO MALE HX OF CHF , CELLULITIS SPONTANEOUS BLISTERING OF LOWER LEGS BECKY 19 ON CONSERVATIVE PUP AND VISCO MATTRESS LABS : WBC- 17.78, HGB- 9.1, GLUCOSE- 95 BLOOD CULTURE PENDING PATIENT ON CLINDAMYCIN SKIN ASSESSMENT COMPLETE PATIENT PRESENTS WITH BILATERAL LE PITTING EDEMA MULTIPLE SCABS NOTED TO BILATERAL LEGS AND ONE OPEN ULCERATION TO RIGHT LATERAL LE 1.5CMX1.5CMX.1CM RECOMMENDATIONS : NURSING TO CONTINUE TO ASSIST PATIENT IN TURNING AND OFFLOADING AND BILATERAL PILLOW SUSPENSION OF HEELS WHILE IN BED RELATED TO EXCESS LOWER EXTREMITY WEIGHT SECONDARY TO EDEMA NURSING TO ASSIST PATIENT OUT OF BED FOR MEALS AND TOLERATED NURSING TO APPLY VENELEX OINTMENT DAILY TO BILATERAL LOWER EXTREMITIES SCABBED AREAS AND ULCERATION ON RT LOWER LEG Addendum: 08/21/19 at 1502 by Mathew Fletcher RN Amended: Links added.
[2019-08-21] MEDS ORDERED: VANCOMYCIN 1GM/NS 250 ML 250 ML IV ONE (15:00)
[2019-08-21] MEDS ORDERED: ALBUMIN 25% 25GM 100ML 0.25 GM/ML BTL IV NR (15:30)
[2019-08-21] MEDS ORDERED: SODIUM CHLORIDE 0.9% 250ML 250 ML ONE (15:37)
[2019-08-21] MEDS: ALBUTEROL/IPRATROPIUM 3 ML NEB NEB SCH ×3 (16:54→23:45)
[2019-08-21] MEDS: BUMETANIDE 1 MG TAB PO SCH (18:26)
--- NOTE | 2019-08-21 19:13 | NUR ---
PAGED Lakshmi TAYLOR FOR URINE OUTPUT 90 ML SINCE 10:30 WHEN CASTRO CATHETER WAS PLACED, PRIOR TO CASTRO INSERTION PATIENT URINATED 400 ML IN URINAL-RECORDED IN I&O RECORD, GAVE REPORT TO OSMAN COOMBS FOR AVIONICS ENGINEER.
[2019-08-21] MEDS ORDERED: SODIUM CHLORIDE 0.9% 250ML 250 ML IV ONE (19:45)
[2019-08-21] MEDS: ATORVASTATIN 10 MG TAB PO SCH (21:50)
--- NOTE | 2019-08-21 22:15 | Consultation ---
DATE OF CONSULTATION: 08/21/2019 HISTORY OF PRESENT ILLNESS: This 69-year-old gentleman known to our Nephrology service has underlying history of chronic kidney disease stage 3, presented with cellulitis of the lower extremity was hypotensive earlier this morning. I gave him a liter of saline boluses. His blood pressure improved. He has got a Diaz catheter, nonoliguric, currently lying supine in no apparent distress. Denies shortness of breath, nausea, vomiting, or fever. His workup included a kidney ultrasound shows 10.9 to 11 cm kidney. No hydronephrosis or renal calculi. Chest x-ray please see official report shows cardiomegaly with mild interstitial pulmonary edema. LABORATORY TESTS: Shows white count of 17.7, hemoglobin 9.1 with a potassium of 4.4, sodium 127 with a bicarbonate 21, creatinine 2.88 with a blood sugar of 139. LFTs noted. AST is elevated at 53. Total protein 5.7. His last BNP level was 1806. ALLERGIES: NO APPARENT DRUG ALLERGIES. SOCIAL HISTORY: The patient quit smoking in 2005. Drinks some alcohol on a regular basis. He is and at bedside. CURRENT MEDICATIONS: On clindamycin 300 mg IV every 8, aspirin 81 mg daily, atorvastatin 10 mg p.o. at bedtime. Lasix 20 mg IV b.i.d. which is on hold. I am going to stop this medication. Midodrine 10 mg p.o. every 8, levothyroxine 125 mcg p.o. daily, and fenofibrate 160 mg daily, which I am going to stop. PHYSICAL EXAMINATION: GENERAL: Awake, alert, oriented x3, lying supine, in no apparent distress. VITAL SIGNS: Last blood pressure recorded 77/49, pulse rate 96 on 2 L nasal cannula. Oxygenating 96%. HEAD AND NECK: Cornea clear. Mucosa moist. Neck veins flat. LUNGS: End-expiratory rhonchi scattered with occasional rales left base more than right. HEART: S1, S2 audible. No rubs or gallops. ABDOMEN: Obese, soft, nontender. Flanks full. EXTREMITIES: Lower extremity evidence of redness and possible cellulitis, right lower pretibial area and ankle area. Trace edema in both lower extremities. PAST MEDICAL HISTORY: History of coronary artery disease, status post [place] and stent placement. History of AICD placement. History of ventricular ablation. He has history of atrial fibrillation on Coumadin. History of hypertension, chronic kidney disease stage 3, underlying hypertension with hypertensive kidney disease, history of congestive heart failure. Plan on obtaining a spot urine protein creatinine ratio. Consider expanding antibiotic coverage. I will give him1 g of vancomycin IV x1 for his cellulitis. I plan to add Bumex at a dose of 2 mg orally twice a day. Recommend strict intake output, nurse to recheck blood pressure inform me if the blood pressure is still low. The patient is followed by Dr. Zafar Woods as an outpatient. Consider cardiology evaluation. Hyponatremia multifactorial. I will add albuterol Atrovent nebulizer has a mild distal RTA. I will also obtain clinic records. MD NELLY Burt/TOBY /[id number]
[2019-08-22] VITALS (9 sets, daily range): BP systolic 90–119; BP diastolic 55–86
[2019-08-22] MEDS: ALBUTEROL/IPRATROPIUM 3 ML NEB NEB SCH ×6 (03:00→23:00)
[2019-08-22] MEDS: CLINDAMYCIN 300MG 50 ML IV SCH ×3 (05:31→21:29)
[2019-08-22] MEDS: MIDODRINE HCL 5 MG TABLET PO SCH ×3 (05:31→21:28)
[2019-08-22] MEDS: LEVOTHYROXINE SODIUM 125 MCG TAB PO SCH (05:32)
--- NOTE | 2019-08-22 09:11 | NUR ---
IM- progress note O/N no events REVIEW OF SYSTEMS: Denies any dizziness, chest pain. Denies any fever, sweats, nausea, vomiting, diarrhea, leg pain, back pain, headache, vision changes. PHYSICAL EXAMINATION VITAL SIGNS: Reviewed. GENERAL: A tired-appearing man resting in bed. HEENT: Anicteric. Pupils respond to light. No oral lesions. CARDIOVASCULAR: Normal S1, S2. LUNGS: He has reduced breath sounds throughout. ABDOMEN: Soft, nontender, nondistended. EXTREMITIES: 1+ LEG EDEMA LEFT LEG, 2+ LEG EDEMA RIGHT LEGS; R>L NEUROLOGIC: Alert and oriented x3. Moves all extremities. SKIN: Dry. PSYCHIATRIC: Normal affect. LABS: Reviewed. MEDICATIONS: Reviewed. ASSESSMENT AND PLAN: This is a 68-year-old man. Sepsis Hyponatremia Cellulitis of forelegs MARIA ELENA Coagulopathy Pulmonary edema AECHF-systolic PAF Hypothyroidism CKD3 due to DM2 HLD PLAN IV abx; check leg doppler U/S hold antiHTN meds recheck inr; hold coumadin pepcid on AC 08/22 BP improved some; on bumex; cellulitis improving; jimenez with blood tinged; check labs; renal u/S no hydronephrosis. Michael Mcbride MD, PhD.
[2019-08-22] MEDS: ASPIRIN 81 MG CHEW TAB PO SCH (09:31)
[2019-08-22] MEDS: BUMETANIDE 1 MG TAB PO SCH (09:31)
[2019-08-22 09:40] LABS: BASOPHILS # (AUTO) 0.1 (0.0-0.1); BASOPHILS % 0.3 % (0.0-1.0); EOSINOPHILS # (AUTO) 0.2 (0.0-0.4); EOSINOPHILS % 1.1 % (0.0-6.0); HEMATOCRIT 27.1 % (38.2-49.6); HEMOGLOBIN 9.3 g/dL (14.0-18.0); LYMPHOCYTES # (AUTO) 0.5 (1.0-3.2); LYMPHOCYTES % 3.1 % (18.0-39.1); MEAN CORPUSCULAR HEMOGLOBIN 30.8 pg (28-32); MEAN CORPUSCULAR HGB CONC 34.3 g/dL (31-35); MEAN CORPUSCULAR VOLUME 89.7 fL (81-99); MONOCYTES # (AUTO) 1.1 (0.2-0.8); MONOCYTES % 6.3 % (4.4-11.3); NEUTROPHILS # (AUTO) 15.5 (2.1-6.9); NEUTROPHILS % 87.8 % (38.7-80.0); PLATELET COUNT 263 x10e3/uL (140-360); RED BLOOD COUNT 3.02 x10e6/uL (4.3-5.7); RED CELL DISTRIBUTION WIDTH 15.8 % (11.7-14.4)
[2019-08-22 09:52] LABS: ANION GAP 16.3 mmol/L (8-16); CALCIUM 9.1 mg/dL (8.4-10.2); CREATININE, SERUM 3.31 mg/dL (0.72-1.25); POTASSIUM 4.3 mmol/L (3.5-5.1)
[2019-08-22] MEDS: BALSAM PERU/CASTOR OIL 60 GM OINT...G. TP SCH (10:00)
[2019-08-22] MEDS ORDERED: SODIUM CHLORIDE 0.9% 1000ML 1,000 ML IV SCH (10:00)
[2019-08-22] MEDS ORDERED: ALBUMIN 5% 0.05 GM/ML BTL IV ONE (10:00)
[2019-08-22 10:07] LABS: CREATININE,URINE RANDOM 155.55 mg/dL (63-166); TOTAL PROTEIN, URINE 94.2 mg/dL (1-14)
[2019-08-22 10:31] LABS: LYMPHOCYTES % (MANUAL) 5 % (19-48); MONOCYTES % (MANUAL) 6 % (3.4-9.0); NEUTROPHILS % (MANUAL) 89 % (40-74)
[2019-08-22 10:33] LABS: BURR CELLS SLIGHT; HELMET CELLS RARE; OVALOCYTES FEW; POIKILOCYTOSIS SLIGHT
[2019-08-22 10:34] LABS: PLATELET ESTIMATE ADEQUATE; PLATELET MORPHOLOGY COMMENT FEW LARGE; RBC MORPHOLOGY COMMENT ABNORMAL
[2019-08-22] MEDS ORDERED: ALBUMIN 5% 250ML 250 ML IV ONE (10:45)
[2019-08-22 10:47] LABS: ANISOCYTOSIS SLIGHT
[2019-08-22] MEDS: SODIUM CHLORIDE 1 GM TAB PO SCH (12:31)
[2019-08-22] MEDS ORDERED: PHYTONADIONE 10 MG/ML AMP PO NR (16:30)
--- NOTE | 2019-08-22 17:53 | NUR ---
Nutrition Screen Note RD Recommendation for Physician: Continue cardiac diet Plan of Care: RD following, monitoring for tolerance and adequacy Nutrition reason for involvement: Diagnosis - CHF Primary Diagnose(s): MARIA ELENA, cellulitis, and CHF exacerbation PMH: afib with anticoagulation, systolic CHF, HTN, [place], pneumonia, MARIA ELENA, hypothyroid, cigarette use Ht: 68 in Wt: 225 lb BMI: 34.2 kg/m2 IBW:[address] Assessment: (08/22/19) Chart reviewed. Labs and meds reviewed. Pt is a 69 year old male admitted with MARIA ELENA, cellulitis, and CHF exacerbation. Pt stated his appetite varies but has been eating at least 50% of his meals. No wt loss reported and pt mentioned he usually weighs 230 lbs. Pt currently has a wt of 225 lbs in chart. No N/V/D/C reported and no chewing/swallowing issues. Current Diet: Cardiac Malnutrition Evaluation (08/22/19) The patient does not meet criteria for a specified degree of malnutrition at this time. Will re-evaluate at follow-up as appropriate. Diet Education Needs Assessment: Pt was not interested in diet education Nutrition Care Level: Low Signed: Bree Peters, RD, LD
[2019-08-22] MEDS: ATORVASTATIN 10 MG TAB PO SCH (21:28)
[2019-08-22 22:38] LABS: INR 1.98; PROTHROMBIN TIME 23.2 seconds (11.9-14.5)
[2019-08-23 05:00] VITALS: BP 106/68
[2019-08-23 05:18] LABS: BASOPHILS # (AUTO) 0.1 (0.0-0.1); BASOPHILS % 0.4 % (0.0-1.0); EOSINOPHILS # (AUTO) 0.3 (0.0-0.4); EOSINOPHILS % 1.7 % (0.0-6.0); HEMATOCRIT 28.6 % (38.2-49.6); HEMOGLOBIN 9.5 g/dL (14.0-18.0); LYMPHOCYTES # (AUTO) 0.9 (1.0-3.2); LYMPHOCYTES % 5.1 % (18.0-39.1); MEAN CORPUSCULAR HEMOGLOBIN 30.1 pg (28-32); MEAN CORPUSCULAR HGB CONC 33.2 g/dL (31-35); MEAN CORPUSCULAR VOLUME 90.5 fL (81-99); MONOCYTES # (AUTO) 1.3 (0.2-0.8); MONOCYTES % 7.5 % (4.4-11.3); NEUTROPHILS # (AUTO) 14.4 (2.1-6.9); NEUTROPHILS % 84.3 % (38.7-80.0); PLATELET COUNT 291 x10e3/uL (140-360); RED BLOOD COUNT 3.16 x10e6/uL (4.3-5.7); RED CELL DISTRIBUTION WIDTH 15.7 % (11.7-14.4)
[2019-08-23] MEDS: LEVOTHYROXINE SODIUM 125 MCG TAB PO SCH (05:26)
[2019-08-23] MEDS: MIDODRINE HCL 5 MG TABLET PO SCH ×3 (05:26→22:00)
[2019-08-23 05:33] LABS: INR 1.87; PROTHROMBIN TIME 22.2 seconds (11.9-14.5)
[2019-08-23 05:52] LABS: ALBUMIN 3.4 g/dL (3.5-5.0); ALBUMIN/GLOBULIN RATIO 1.1 (0.8-2.0); ANION GAP 19.8 mmol/L (8-16); CALCIUM 9.6 mg/dL (8.4-10.2); CREATININE, SERUM 2.72 mg/dL (0.72-1.25); POTASSIUM 4.8 mmol/L (3.5-5.1)
[2019-08-23] MEDS: CLINDAMYCIN 300MG 50 ML IV SCH ×3 (06:02→22:00)
[2019-08-23] MEDS: ALBUTEROL/IPRATROPIUM 3 ML NEB NEB SCH ×5 (07:20→23:05)
[2019-08-23 07:30] VITALS: BP 109/71
[2019-08-23] MEDS: BUMETANIDE 1 MG TAB PO SCH (08:03)
[2019-08-23] MEDS: SODIUM CHLORIDE 1 GM TAB PO SCH (08:03)
[2019-08-23] MEDS: ASPIRIN 81 MG CHEW TAB PO SCH (08:03)
[2019-08-23] MEDS: BALSAM PERU/CASTOR OIL 60 GM OINT...G. TP SCH (08:03)
--- NOTE | 2019-08-23 12:41 | Consultation ---
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 Has prior history of diabetes, maintained on metformin, also long-standing history of hypertension as well as prior CVA with both lower extremity weakness. Denies prior history of [place], kidney stones, kidney insufficiency, hematuria, or prostate enlargement. He has been having headaches for the last one month. He has been taking up to 6 tablets of Excedrin at home. He is being seen his primary physician, Dr. Yusef March. Apparently has been on multiple antihypertensives, he cannot remember, but one of them is amlodipine. He is currently lying supine. Denies shortness of breath, nausea, vomiting, or chest pains. SOCIAL HISTORY: The patient does not smoke. Very occasionally drinks. Denies any substance abuse. ALLERGIES: NO APPARENT DRUG ALLERGIES. CURRENT LABORATORY DATA: Sodium 127, potassium 4.4, chloride 94, bicarb 21, BUN 44, and creatinine 2.88. White count 17.7, hemoglobin 9.1 and INR is 4.83. The patient denies taking any blood thinners at home. Has an AST of 53, ALT 28, total bilirubin 1.12, and alkaline phosphatase 32. CURRENT MEDICATIONS: The patient is on clindamycin 300 mg IV q.8, albuterol/Atrovent nebulizer, atorvastatin 10 mg at bedtime, aspirin 81 mg daily, Bumex 2 mg p.o. b.i.d., was on IV Lasix, has been stopped, midodrine 10 mg p.o. q.8 x4 doses. Fenofibrate has been discontinued. DICTATION ENDS HERE MD ENLLY Burt/TOBY /[id number]
[2019-08-23 13:45] VITALS: BP 103/62
[2019-08-23 17:00] VITALS: BP 117/70
[2019-08-23 20:00] VITALS: BP 103/62
[2019-08-23 21:00] VITALS: BP 103/62
[2019-08-23] MEDS: ATORVASTATIN 10 MG TAB PO SCH (21:00)
[2019-08-24] VITALS (7 sets, daily range): BP systolic 95–109; BP diastolic 33–75
[2019-08-24] MEDS: ALBUTEROL/IPRATROPIUM 3 ML NEB NEB SCH ×3 (03:05→11:00)
[2019-08-24] MEDS: LEVOTHYROXINE SODIUM 125 MCG TAB PO SCH (05:20)
[2019-08-24] MEDS: CLINDAMYCIN 300MG 50 ML IV SCH ×3 (05:20→21:18)
[2019-08-24] MEDS: MIDODRINE HCL 5 MG TABLET PO SCH ×3 (05:20→21:13)
[2019-08-24] MEDS: ASPIRIN 81 MG CHEW TAB PO SCH (08:02)
[2019-08-24] MEDS: BUMETANIDE 1 MG TAB PO SCH ×2 (08:02→16:40)
[2019-08-24] MEDS: SODIUM CHLORIDE 1 GM TAB PO SCH (08:02)
--- NOTE | 2019-08-24 09:40 | NUR ---
IM- progress note O/N no events REVIEW OF SYSTEMS: Denies any dizziness, chest pain. Denies any fever, sweats, nausea, vomiting, diarrhea, leg pain, back pain, headache, vision changes. PHYSICAL EXAMINATION VITAL SIGNS: Reviewed. GENERAL: A tired-appearing man resting in bed. HEENT: Anicteric. Pupils respond to light. No oral lesions. CARDIOVASCULAR: Normal S1, S2. LUNGS: He has reduced breath sounds throughout. ABDOMEN: Soft, nontender, nondistended. EXTREMITIES: 1+ LEG EDEMA LEFT LEG, 2+ LEG EDEMA RIGHT LEGS; R>L NEUROLOGIC: Alert and oriented x3. Moves all extremities. SKIN: Dry. PSYCHIATRIC: Normal affect. LABS: Reviewed. MEDICATIONS: Reviewed. ASSESSMENT AND PLAN: This is a 68-year-old man. Sepsis Hyponatremia Cellulitis of forelegs MARIA ELENA Coagulopathy Pulmonary edema AECHF-systolic PAF Hypothyroidism CKD3 due to DM2 HLD PLAN IV abx; check leg doppler U/S hold antiHTN meds recheck inr; hold coumadin pepcid on AC 08/22 BP improved some; on bumex; cellulitis improving; jimenez with blood tinged; check labs; renal u/S no hydronephrosis. 08/23 inr 1.87 after 5mg vitK; cont abx; f/u labs; 08/24 check labs Michael Mcbride MD, PhD.
[2019-08-24 10:08] LABS: BASOPHILS # (AUTO) 0.1 (0.0-0.1); BASOPHILS % 0.4 % (0.0-1.0); EOSINOPHILS # (AUTO) 0.3 (0.0-0.4); EOSINOPHILS % 1.7 % (0.0-6.0); HEMOGLOBIN 9.6 g/dL (14.0-18.0); LYMPHOCYTES # (AUTO) 0.8 (1.0-3.2); LYMPHOCYTES % 5.5 % (18.0-39.1); MEAN CORPUSCULAR HEMOGLOBIN 29.8 pg (28-32); MEAN CORPUSCULAR HGB CONC 33.1 g/dL (31-35); MEAN CORPUSCULAR VOLUME 90.1 fL (81-99); MONOCYTES # (AUTO) 1.1 (0.2-0.8); MONOCYTES % 7.4 % (4.4-11.3); NEUTROPHILS # (AUTO) 12.5 (2.1-6.9); NEUTROPHILS % 83.1 % (38.7-80.0); PLATELET COUNT 301 x10e3/uL (140-360); RED BLOOD COUNT 3.22 x10e6/uL (4.3-5.7); RED CELL DISTRIBUTION WIDTH 15.8 % (11.7-14.4)
[2019-08-24 10:23] LABS: ANION GAP 15.3 mmol/L (8-16); CALCIUM 9.8 mg/dL (8.4-10.2); CREATININE, SERUM 1.94 mg/dL (0.72-1.25); POTASSIUM 4.3 mmol/L (3.5-5.1)
[2019-08-24 12:27] LABS: INR 1.59; PROTHROMBIN TIME 19.6 seconds (11.9-14.5)
[2019-08-24] MEDS: BALSAM PERU/CASTOR OIL 60 GM OINT...G. TP SCH (12:27)
[2019-08-24] MEDS ORDERED: ALBUTEROL SULFATE HFA 8GM INHALATION AEROSOL INH PRN (13:45)
--- NOTE | 2019-08-24 15:35 | NUR ---
IMM explained to patient, patient verbalized understanding and signed, copy given to patient original placed in chart. Patient instructed to reach out to case management for any anticipated dc needs
[2019-08-24] MEDS: ATORVASTATIN 10 MG TAB PO SCH (21:14)
[2019-08-25] VITALS (8 sets, daily range): BP systolic 80–128; BP diastolic 54–74
[2019-08-25 05:19] LABS: BASOPHILS # (AUTO) 0.1 (0.0-0.1); BASOPHILS % 0.6 % (0.0-1.0); EOSINOPHILS # (AUTO) 0.7 (0.0-0.4); EOSINOPHILS % 5.6 % (0.0-6.0); HEMATOCRIT 29.8 % (38.2-49.6); HEMOGLOBIN 9.7 g/dL (14.0-18.0); LYMPHOCYTES % 7.7 % (18.0-39.1); MEAN CORPUSCULAR HEMOGLOBIN 30.3 pg (28-32); MEAN CORPUSCULAR HGB CONC 32.6 g/dL (31-35); MEAN CORPUSCULAR VOLUME 93.1 fL (81-99); MONOCYTES # (AUTO) 0.9 (0.2-0.8); MONOCYTES % 7.2 % (4.4-11.3); NEUTROPHILS # (AUTO) 9.7 (2.1-6.9); NEUTROPHILS % 77.1 % (38.7-80.0); PLATELET COUNT 339 x10e3/uL (140-360); RED CELL DISTRIBUTION WIDTH 15.9 % (11.7-14.4)
[2019-08-25 05:41] LABS: INR 1.56; PROTHROMBIN TIME 19.3 seconds (11.9-14.5)
[2019-08-25 05:52] LABS: ALBUMIN 3.2 g/dL (3.5-5.0); CALCIUM 9.8 mg/dL (8.4-10.2); CREATININE, SERUM 1.7 mg/dL (0.72-1.25)
[2019-08-25] MEDS: LEVOTHYROXINE SODIUM 125 MCG TAB PO SCH (06:27)
[2019-08-25] MEDS: CLINDAMYCIN 300MG 50 ML IV SCH ×3 (06:28→21:29)
[2019-08-25] MEDS: MIDODRINE HCL 5 MG TABLET PO SCH ×3 (06:28→21:29)
--- NOTE | 2019-08-25 07:00 | NUR ---
BEDSIDE ROUNDS COMPLETE NO DISTRESS NOTED, UPDATED ON POC VOICED UNDERSTANDING, DENIES PAIN AT THIS TIME, BLE REDNESS, PITTED EDEMA NOTED, R AC 20G NO SS OF INFILTRATION NOTED, NO OTHER CO VOCIED CALL LIGHT IN REACH WILL CONTINUE OT MONITOR
[2019-08-25] MEDS: ASPIRIN 81 MG CHEW TAB PO SCH (08:28)
[2019-08-25] MEDS: SODIUM CHLORIDE 1 GM TAB PO SCH (08:28)
[2019-08-25] MEDS: BALSAM PERU/CASTOR OIL 60 GM OINT...G. TP SCH (08:28)
[2019-08-25] MEDS: BUMETANIDE 1 MG TAB PO SCH (08:28)
--- NOTE | 2019-08-25 13:37 | Progress Note ---
DATE: 08/25/2019 SUBJECTIVE: Has significant swelling still, some dyspnea, O2 saturation is okay on nasal cannula. OBJECTIVE: VITAL SIGNS: Blood pressure 98/66, pulse 80, temperature 97.3. CHEST: Diminished breath sounds at bases. EXTREMITIES: A 3 to 4+ edema. ABDOMEN: Benign. ASSESSMENT: Fluid overload, acute kidney injury. Possible cardiorenal syndrome improved. Chronic anticoagulation. PLAN: 1. Switch to IV Lasix. 2. Continue to ambulate. 3. Keep low salt intake. 4. Fluid restrict. 5. Avoid NSAIDs and other nephrotoxins. 6. underlying chronic kidney disease stage 3, presumably nephrosclerosis. We will follow along. MD SHARIFA Morris/TOBY /[id number]
[2019-08-25] MEDS: WARFARIN SOD 2 MG TAB PO SCH (17:30)
[2019-08-25] MEDS: FUROSEMIDE INJ 10 MG/ML 4 ML VIAL IV SCH (17:30)
[2019-08-25] MEDS: ATORVASTATIN 10 MG TAB PO SCH (20:18)
[2019-08-26 05:43] LABS: ANION GAP 15.8 mmol/L (8-16); CALCIUM 9.5 mg/dL (8.4-10.2); CREATININE, SERUM 1.43 mg/dL (0.72-1.25); MAGNESIUM 1.9 MG/DL (1.3-2.1); POTASSIUM 3.8 mmol/L (3.5-5.1)
[2019-08-26] MEDS: MIDODRINE HCL 5 MG TABLET PO SCH ×3 (06:41→20:39)
[2019-08-26] MEDS: LEVOTHYROXINE SODIUM 125 MCG TAB PO SCH (06:41)
[2019-08-26] MEDS: CLINDAMYCIN 300MG 50 ML IV SCH ×3 (06:41→20:39)
--- NOTE | 2019-08-26 07:29 | NUR ---
IM- progress note O/N no events REVIEW OF SYSTEMS: Denies any dizziness, chest pain. Denies any fever, sweats, nausea, vomiting, diarrhea, leg pain, back pain, headache, vision changes. PHYSICAL EXAMINATION VITAL SIGNS: Reviewed. GENERAL: A tired-appearing man resting in bed. HEENT: Anicteric. Pupils respond to light. No oral lesions. CARDIOVASCULAR: Normal S1, S2. LUNGS: He has reduced breath sounds throughout. ABDOMEN: Soft, nontender, nondistended. EXTREMITIES: 1+ LEG EDEMA LEFT LEG, 2+ LEG EDEMA RIGHT LEGS; R>L NEUROLOGIC: Alert and oriented x3. Moves all extremities. SKIN: Dry. PSYCHIATRIC: Normal affect. LABS: Reviewed. MEDICATIONS: Reviewed. ASSESSMENT AND PLAN: This is a 68-year-old man. Sepsis Hyponatremia Cellulitis of forelegs MARIA ELENA Coagulopathy Pulmonary edema AECHF-systolic PAF Hypothyroidism CKD3 due to DM2 HLD PLAN IV abx; check leg doppler U/S hold antiHTN meds recheck inr; hold coumadin pepcid on AC 08/22 BP improved some; on bumex; cellulitis improving; jimenez with blood tinged; check labs; renal u/S no hydronephrosis. 08/23 inr 1.87 after 5mg vitK; cont abx; f/u labs; 08/24 check labs 08/25 leukocytosis resolving; renal fn improving; restart coumadin; 08/26 check inr; lasix 80bid. Michael Mcbride MD, PhD.
[2019-08-26 08:07] LABS: INR 1.46; PROTHROMBIN TIME 18.3 seconds (11.9-14.5)
--- NOTE | 2019-08-26 08:40 | NUR ---
MD MURRAY INTO SEE PT, DISCUSSED POC
[2019-08-26] MEDS: BALSAM PERU/CASTOR OIL 60 GM OINT...G. TP SCH (09:00)
[2019-08-26] MEDS: FUROSEMIDE INJ 10 MG/ML 4 ML VIAL IV SCH ×2 (09:35→17:00)
[2019-08-26] MEDS: ASPIRIN 81 MG CHEW TAB PO SCH (09:35)
[2019-08-26] MEDS: SODIUM CHLORIDE 1 GM TAB PO SCH (09:35)
[2019-08-26 09:44] VITALS: BP 101/70
[2019-08-26 09:46] VITALS: BP 101/70
--- NOTE | 2019-08-26 11:14 | NUR ---
PT CONTINUES TO SIT IN BEDSIDE CHAIR, VOICES NO NEEDS AT THIS TIME, CALL LIGHT WITHIN REACH
[2019-08-26 12:04] VITALS: BP 94/66
[2019-08-26] MEDS ORDERED: SODIUM CHLORIDE 0.9% 250ML 250 ML ONE (14:00)
--- NOTE | 2019-08-26 16:00 | NUR ---
PT OUT OF CHAIR TO [facility], LARGE BM NOTED, PT TRANSFERRED SELF BACK TO CHAIR, CALL LIGHT WITHIN REACH
[2019-08-26 17:16] VITALS: BP 94/55
[2019-08-26] MEDS: WARFARIN SOD 2 MG TAB PO SCH (17:33)
--- NOTE | 2019-08-26 17:41 | NUR ---
PT BP 94/55, TELEPHONED MD MURRAY TO CLARIFY IF NEED TO HOLD LASIX, RECHECKED BP AT THIS TIME 90/59, ORDERS NOTED TO HOLD THIS DOSE OF 80MG IV LASIX, EMAR NOTED
[2019-08-26 19:00] VITALS: BP 94/66
[2019-08-26 20:00] VITALS: BP 94/66
[2019-08-26] MEDS: ATORVASTATIN 10 MG TAB PO SCH (20:39)
[2019-08-27 05:17] LABS: ANION GAP 15.2 mmol/L (8-16); CALCIUM 9.7 mg/dL (8.4-10.2); CREATININE, SERUM 1.37 mg/dL (0.72-1.25); POTASSIUM 4.2 mmol/L (3.5-5.1)
[2019-08-27 06:06] VITALS: BP 101/52
[2019-08-27] MEDS: CLINDAMYCIN 300MG 50 ML IV SCH ×2 (06:06→14:00)
[2019-08-27] MEDS: LEVOTHYROXINE SODIUM 125 MCG TAB PO SCH (06:06)
[2019-08-27] MEDS: MIDODRINE HCL 5 MG TABLET PO SCH ×2 (06:06→14:00)
[2019-08-27 08:00] VITALS: BP 115/59
[2019-08-27 08:52] VITALS: BP 101/52
[2019-08-27] MEDS: ASPIRIN 81 MG CHEW TAB PO SCH (08:52)
[2019-08-27] MEDS: SODIUM CHLORIDE 1 GM TAB PO SCH (08:52)
[2019-08-27] MEDS: FUROSEMIDE INJ 10 MG/ML 4 ML VIAL IV SCH (08:52)
[2019-08-27] MEDS: BALSAM PERU/CASTOR OIL 60 GM OINT...G. TP SCH (08:53)
[2019-08-27 08:59] VITALS: BP 115/59
[2019-08-27] MEDS ORDERED: LASIX40 MG PO (11:56)
[2019-08-27] MEDS ORDERED: MIDODRINE HCL5 MG PO (11:56)
[2019-08-27] MEDS ORDERED: CLINDAMYCIN HC300 MG PO (11:58)
--- NOTE | 2019-08-27 11:59 | NUR ---
D/c summary Prinipal Dx: Sepsis Hyponatremia Cellulitis of forelegs MARIA ELENA Coagulopathy Pulmonary edema AECHF-systolic PAF Hypothyroidism CKD3 due to DM2 HLD PLAN IV abx; check leg doppler U/S hold antiHTN meds recheck inr; hold coumadin pepcid on AC 08/22 BP improved some; on bumex; cellulitis improving; jimenez with blood tinged; check labs; renal u/S no hydronephrosis. 08/23 inr 1.87 after 5mg vitK; cont abx; f/u labs; 08/24 check labs 08/25 leukocytosis resolving; renal fn improving; restart coumadin; 08/26 check inr; lasix 80bid. f/u pcp 1 week and 1 week stable d/c>35mins d/c home Michael Mcbride MD, PhD.
[2019-08-27 12:00] VITALS: BP 107/68
[2019-08-27 12:43] LABS: INR 1.53
[2019-08-27 16:00] VITALS: BP 110/62
[2019-08-27] MEDS ORDERED: FUROSEMIDE40 MG PO (16:00)
--- NOTE | 2019-08-27 16:14 | NUR ---
IMM explained again to patient, patient signed, placed on chart, copy left with pt
--- NOTE | 2019-08-27 17:30 | NUR ---
Coumadin 2mg PO given at 17:00 prior to being discharged.
--- NOTE | 2019-08-27 17:30 | NUR ---
Patient discharged via wheelchair after getting verbal and written discharge instructions and prescriptions. Taken to awaiting [facility] driven by his . Patient in good spirits and Venelex ointment also given to patient for wound care for his lower legs bilaterally to be applied daily. V/S are stable. Denies any pain or discomfort.
== END 2019-08-27 17:30 | disposition home or self-care (01) | DRG 871 ==
LOC: ER 14:55 → ERHOLD 17:30 → IMCU 21:33 → OBSVTOIN 08-21 06:08
PROVIDERS: ADMIT Internal Medicine; ATTEND Internal Medicine
DX: A41.9 Sepsis, unspecified organism (principal); I50.23 Acute on chronic systolic (congestive) heart failure; E87.1 Hypo-osmolality and hyponatremia; N17.9 Acute kidney failure, unspecified; I13.0 Hypertensive heart and chronic kidney disease with heart failure and stage 1 through stage 4 chronic kidney disease, or unspecified chronic kidney disease; L03.116 Cellulitis of left lower limb; L03.115 Cellulitis of right lower limb; D68.9 Coagulation defect, unspecified; N18.3 Chronic kidney disease, stage 3 (moderate); E11.22 Type 2 diabetes mellitus with diabetic chronic kidney disease; Z79.4 Long term (current) use of insulin; E03.9 Hypothyroidism, unspecified; E78.5 Hyperlipidemia, unspecified; I48.0 Paroxysmal atrial fibrillation; Z79.01 Long term (current) use of anticoagulants; Z87.891 Personal history of nicotine dependence; Z95.810 Presence of automatic (implantable) cardiac defibrillator; Z95.5 Presence of coronary angioplasty implant and graft; I25.2 Old myocardial infarction; I25.10 Atherosclerotic heart disease of native coronary artery without angina pectoris; Z86.73 Personal history of transient ischemic attack (TIA), and cerebral infarction without residual deficits; N40.1 Benign prostatic hyperplasia with lower urinary tract symptoms
CPT/HCPCS: 36415; 71045; 76770; 80048; 80053; 80061; 81001; 82550; 82553; 82570; 82948; 83036; 83605; 83735; 83880; 84156; 84484; 85025; 85610; 87040; 93970; 94640; 97139; 99285; G0378; J0692; J1940; J3370; J3430; J7030; J7050; P9045; P9047

== ENCOUNTER 2020-10-14 22:03 | Emergency (ER) | payer MEDICARE ==
[~2020-10-14] VITALS: Ht 177.8 cm; Wt 97.5 kg
[~2020-10-14 22:03] MED LIST changes: +ALDACTONE25 MG PO; +CLINDAMYCIN HC300 MG PO; +FUROSEMIDE40 MG PO; +MIDODRINE HCL5 MG PO
[2020-10-14] MEDS ORDERED: TETANUS/DIPHTHERIA TOX ADULT 0.5 ML SYR IM STA (22:46)
[2020-10-14] MEDS ORDERED: TETANUS/DIPHTHERIA TOX ADULT 0.5 ML SYR ONE (23:04)
== END 2020-10-14 23:30 | disposition home or self-care (01) ==
LOC: FSED 22:18
DX: R58 Hemorrhage, not elsewhere classified (principal); S80.212A Abrasion, left knee, initial encounter; I48.91 Unspecified atrial fibrillation; I11.0 Hypertensive heart disease with heart failure; I50.9 Heart failure, unspecified; I25.2 Old myocardial infarction; E03.9 Hypothyroidism, unspecified; I25.10 Atherosclerotic heart disease of native coronary artery without angina pectoris; E78.5 Hyperlipidemia, unspecified; Z23 Encounter for immunization; X58.XXXA Exposure to other specified factors, initial encounter; Z79.01 Long term (current) use of anticoagulants; Z79.82 Long term (current) use of aspirin; Z95.810 Presence of automatic (implantable) cardiac defibrillator
CPT/HCPCS: 80053; 85025; 85610; 90471; 90714; 99283

== ENCOUNTER 2020-11-24 15:24 | Emergency (ER) | payer SELFPAY ==
[~2020-11-24] VITALS: Ht 177.8 cm; Wt 88.5 kg
[2020-11-24] MEDS ORDERED: VITAMIN D350 MCG (15:48)
[2020-11-24] MEDS ORDERED: TORSEMIDE100 MG PO (15:48)
[2020-11-24] MEDS ORDERED: SEVELAMER CARB800 MG (15:48)
[2020-11-24] MEDS ORDERED: METOPROLOL SUCC50 MG PO (15:48)
[2020-11-24] MEDS ORDERED: CEPHALEXIN500 MG PO (16:11)
[2020-11-24] MEDS ORDERED: ULTRACET TABLE1 EACH PO (16:14)
[2020-11-24] MEDS ORDERED: HYDROCODONE/APAP 5MG-325MG TAB PO ONE (16:15)
[2020-11-24] MEDS ORDERED: HYDROCODONE/APAP 5MG-325MG TAB ONE (16:18)
== END 2020-11-24 16:30 | disposition home or self-care (01) ==
LOC: FSED 16:01
DX: L03.116 Cellulitis of left lower limb (principal); L03.115 Cellulitis of right lower limb; I95.9 Hypotension, unspecified; D68.8 Other specified coagulation defects; I12.0 Hypertensive chronic kidney disease with stage 5 chronic kidney disease or end stage renal disease; N18.6 End stage renal disease; Z99.2 Dependence on renal dialysis; I25.10 Atherosclerotic heart disease of native coronary artery without angina pectoris; E78.5 Hyperlipidemia, unspecified; I50.9 Heart failure, unspecified; I25.2 Old myocardial infarction; Z95.810 Presence of automatic (implantable) cardiac defibrillator; Z96.652 Presence of left artificial knee joint
CPT/HCPCS: 99283

== ENCOUNTER 2020-12-10 12:42 | Inpatient (IN) | payer MEDICARE, OTHER ==
[~2020-12-10] VITALS: Ht 177.8 cm; Wt 93.9 kg
[~2020-12-10 12:42] MED LIST changes: +CEPHALEXIN500 MG PO; +SEVELAMER CARB800 MG; +TORSEMIDE100 MG PO; +ULTRACET TABLE1 EACH PO; +VITAMIN D350 MCG
[2020-12-10 14:01] LABS: BASOPHILS # (AUTO) 0.1 (0.0-0.1); BASOPHILS % 0.9 % (0.0-1.0); EOSINOPHILS # (AUTO) 0.1 (0.0-0.4); EOSINOPHILS % 1.1 % (0.0-6.0); HEMOGLOBIN 11.1 g/dL (14.0-18.0); LYMPHOCYTES # (AUTO) 1.3 (1.0-3.2); LYMPHOCYTES % 12.5 % (18.0-39.1); MEAN CORPUSCULAR HGB CONC 32.6 g/dL (31-35); MONOCYTES # (AUTO) 0.7 (0.2-0.8); MONOCYTES % 6.7 % (4.4-11.3); NEUTROPHILS # (AUTO) 8.3 (2.1-6.9); NEUTROPHILS % 77.9 % (38.7-80.0); PLATELET COUNT 342 x10e3/uL (140-360); RED BLOOD COUNT 3.58 x10e6/uL (4.3-5.7); RED CELL DISTRIBUTION WIDTH 14.2 % (11.7-14.4)
[2020-12-10 14:21] LABS: ALBUMIN 2.1 g/dL (3.5-5.0); ALBUMIN/GLOBULIN RATIO 0.6 (0.8-2.0); ANION GAP 23.1 mmol/L (8-16); CREATININE, SERUM 8.27 mg/dL (0.72-1.25); POTASSIUM 3.1 mmol/L (3.5-5.1)
[2020-12-10] MEDS ORDERED: SODIUM CHLORIDE 0.9% 500ML 500 ML IV ONE (14:45)
[2020-12-10] MEDS ORDERED: SODIUM CHLORIDE 0.9% 500ML 500 ML ONE (14:52)
[2020-12-10] MEDS ORDERED: SODIUM CHLORIDE 0.9% 1000ML 1,000 ML ONE (15:17)
[2020-12-10] MEDS ORDERED: ALBUMIN 5% 0.05 GM/ML BTL IV SCH (16:00)
[2020-12-10] MEDS ORDERED: ALBUMIN 5% 250ML 250 ML IV SCH (16:00)
[2020-12-10] MEDS ORDERED: SODIUM CHLORIDE 0.9% 1000ML 1,000 ML IV STA ×2 (16:10→20:24)
[2020-12-10] MEDS ORDERED: SODIUM CHLORIDE 0.9% 1000ML 1,000 ML IV SCH (16:30)
[2020-12-10] MEDS: ALBUMIN 5% 250ML 250 ML IV SCH ×2 (17:32→20:05)
[2020-12-10] MEDS ORDERED: ALBUMIN 5% 0.05 GM/ML BTL IV ONE (18:00)
[2020-12-10] MEDS: MIDODRINE HCL 5 MG TABLET PO SCH (18:27)
[2020-12-10 21:10] LABS: INR 2.08
[2020-12-10] MEDS: WARFARIN SOD 1 MG TAB PO SCH (22:52)
[2020-12-10] MEDS: ATORVASTATIN 20 MG TAB PO SCH (22:53)
[2020-12-11] VITALS (28 sets, daily range): BP systolic 57–148; BP diastolic 33–107
[2020-12-11] MEDS: MIDODRINE HCL 5 MG TABLET PO SCH ×4 (06:42→21:03)
[2020-12-11] MEDS: LEVOTHYROXINE SODIUM 125 MCG TAB PO SCH (06:42)
[2020-12-11] MEDS: ASPIRIN 81 MG CHEW TAB PO SCH (08:05)
[2020-12-11 08:45] LABS: BASOPHILS # (AUTO) 0.1 (0.0-0.1); EOSINOPHILS # (AUTO) 0.7 (0.0-0.4); EOSINOPHILS % 5.9 % (0.0-6.0); HEMATOCRIT 26.5 % (38.2-49.6); HEMOGLOBIN 8.4 g/dL (14.0-18.0); LYMPHOCYTES # (AUTO) 1.2 (1.0-3.2); LYMPHOCYTES % 10.5 % (18.0-39.1); MEAN CORPUSCULAR HEMOGLOBIN 30.4 pg (28-32); MEAN CORPUSCULAR HGB CONC 31.7 g/dL (31-35); MONOCYTES # (AUTO) 0.6 (0.2-0.8); MONOCYTES % 5.3 % (4.4-11.3); NEUTROPHILS # (AUTO) 8.9 (2.1-6.9); NEUTROPHILS % 76.7 % (38.7-80.0); PLATELET COUNT 272 x10e3/uL (140-360); RED BLOOD COUNT 2.76 x10e6/uL (4.3-5.7); RED CELL DISTRIBUTION WIDTH 14.6 % (11.7-14.4)
[2020-12-11 09:19] LABS: ALBUMIN 1.9 g/dL (3.5-5.0); ALBUMIN/GLOBULIN RATIO 0.7 (0.8-2.0); ANION GAP 14.9 mmol/L (8-16); CALCIUM 7.4 mg/dL (8.4-10.2); CREATININE, SERUM 8.09 mg/dL (0.72-1.25)
[2020-12-11 09:32] LABS: POTASSIUM 2.9 mmol/L (3.5-5.1)
[2020-12-11] MEDS ORDERED: ALBUMIN 5% 0.05 GM/ML BTL IV STA (09:59)
[2020-12-11] MEDS ORDERED: ALBUMIN 5% 0.05 GM/ML BTL IV ONE (10:00)
[2020-12-11] MEDS ORDERED: POTASSIUM CHLORIDE 20MEQ/100ML 200 ML IV ONE (10:00)
[2020-12-11] MEDS ORDERED: SODIUM CHLORIDE 0.9% 250ML 250 ML ONE (10:54)
[2020-12-11] MEDS ORDERED: ALBUMIN 5% 250ML 500 ML IV ONE (11:00)
[2020-12-11] MEDS: WARFARIN SOD 1 MG TAB PO SCH (17:12)
[2020-12-11 18:11] LABS: CREATINE KINASE MB 4.3 ng/mL (0-5.0)
[2020-12-11] MEDS: ATORVASTATIN 20 MG TAB PO SCH (21:03)
[2020-12-12] VITALS (24 sets, daily range): BP systolic 66–158; BP diastolic 39–106
[2020-12-12] MEDS: LEVOTHYROXINE SODIUM 125 MCG TAB PO SCH (06:25)
[2020-12-12] MEDS: MIDODRINE HCL 5 MG TABLET PO SCH ×3 (06:25→19:25)
[2020-12-12] MEDS: COLLAGENASE 5 GM TUBE TP SCH (08:08)
[2020-12-12] MEDS: BACITRACIN ZINC 15 GM OINT TOP SCH (08:08)
[2020-12-12] MEDS: ASPIRIN 81 MG CHEW TAB PO SCH (08:08)
[2020-12-12 08:35] LABS: BASOPHILS # (AUTO) 0.1 (0.0-0.1); BASOPHILS % 1.2 % (0.0-1.0); EOSINOPHILS # (AUTO) 1.2 (0.0-0.4); EOSINOPHILS % 11.3 % (0.0-6.0); HEMATOCRIT 26.9 % (38.2-49.6); HEMOGLOBIN 8.7 g/dL (14.0-18.0); LYMPHOCYTES # (AUTO) 1.5 (1.0-3.2); LYMPHOCYTES % 13.7 % (18.0-39.1); MEAN CORPUSCULAR HEMOGLOBIN 30.7 pg (28-32); MEAN CORPUSCULAR HGB CONC 32.3 g/dL (31-35); MEAN CORPUSCULAR VOLUME 95.1 fL (81-99); MONOCYTES % 9.3 % (4.4-11.3); NEUTROPHILS % 63.9 % (38.7-80.0); PLATELET COUNT 320 x10e3/uL (140-360); RED BLOOD COUNT 2.83 x10e6/uL (4.3-5.7); RED CELL DISTRIBUTION WIDTH 14.6 % (11.7-14.4)
[2020-12-12 08:55] LABS: ALBUMIN 2.3 g/dL (3.5-5.0); ALBUMIN/GLOBULIN RATIO 0.8 (0.8-2.0); ANION GAP 17.2 mmol/L (8-16); CALCIUM 7.8 mg/dL (8.4-10.2); CREATININE, SERUM 7.3 mg/dL (0.72-1.25); POTASSIUM 3.2 mmol/L (3.5-5.1)
[2020-12-12] MEDS ORDERED: POTASSIUM CHLORIDE 20 MEQ TAB CR PO ONE (12:30)
[2020-12-12] MEDS: GABAPENTIN 100 MG CAP PO SCH (13:30)
[2020-12-12] MEDS: WARFARIN SOD 2 MG TAB PO SCH (16:40)
[2020-12-12] MEDS: ATORVASTATIN 20 MG TAB PO SCH (19:25)
[2020-12-13] VITALS (27 sets, daily range): BP systolic 64–116; BP diastolic 45–66
[2020-12-13 05:58] LABS: BASOPHILS # (AUTO) 0.1 (0.0-0.1); BASOPHILS % 1.3 % (0.0-1.0); EOSINOPHILS # (AUTO) 1.3 (0.0-0.4); EOSINOPHILS % 13.7 % (0.0-6.0); HEMATOCRIT 29.7 % (38.2-49.6); HEMOGLOBIN 9.1 g/dL (14.0-18.0); LYMPHOCYTES # (AUTO) 1.5 (1.0-3.2); LYMPHOCYTES % 15.7 % (18.0-39.1); MEAN CORPUSCULAR HEMOGLOBIN 30.5 pg (28-32); MEAN CORPUSCULAR HGB CONC 30.6 g/dL (31-35); MEAN CORPUSCULAR VOLUME 99.7 fL (81-99); MONOCYTES # (AUTO) 1.1 (0.2-0.8); MONOCYTES % 11.3 % (4.4-11.3); NEUTROPHILS # (AUTO) 5.4 (2.1-6.9); NEUTROPHILS % 57.4 % (38.7-80.0); PLATELET COUNT 274 x10e3/uL (140-360); RED BLOOD COUNT 2.98 x10e6/uL (4.3-5.7); RED CELL DISTRIBUTION WIDTH 14.6 % (11.7-14.4)
[2020-12-13 06:29] LABS: ALBUMIN/GLOBULIN RATIO 0.7 (0.8-2.0); ANION GAP 15.6 mmol/L (8-16); CALCIUM 7.6 mg/dL (8.4-10.2); CREATININE, SERUM 6.56 mg/dL (0.72-1.25); POTASSIUM 3.6 mmol/L (3.5-5.1)
[2020-12-13] MEDS: LEVOTHYROXINE SODIUM 125 MCG TAB PO SCH (06:34)
[2020-12-13] MEDS: MIDODRINE HCL 5 MG TABLET PO SCH ×3 (06:34→21:03)
[2020-12-13] MEDS: GABAPENTIN 100 MG CAP PO SCH (08:58)
[2020-12-13] MEDS: ASPIRIN 81 MG CHEW TAB PO SCH (08:58)
[2020-12-13 09:39] LABS: INR 1.67; PROTHROMBIN TIME 20.9 seconds (11.9-14.5)
[2020-12-13] MEDS: BACITRACIN ZINC 15 GM OINT TOP SCH (09:58)
[2020-12-13] MEDS: COLLAGENASE 5 GM TUBE TP SCH (09:58)
[2020-12-13] MEDS ORDERED: EPOETIN ALFA-EPBX 10,000 UNIT/ML VIAL SC SCH (12:30)
[2020-12-13] MEDS ORDERED: MIDODRINE HCL 5 MG TABLET PO SCH (15:00)
[2020-12-13] MEDS ORDERED: EPOETIN ALFA-EPBX 10,000 UNIT/ML VIAL SC ONE (16:00)
[2020-12-13 16:18] LABS: BODY FLUID APPEARANCE CLEAR; BODY FLUID COLOR YELLOW; BODY FLUID TYPE PERITONEAL
[2020-12-13 16:19] LABS: RBC,BODY FLUID 1 cells/uL; WBC,BODY FLUID 1 cells/uL
[2020-12-13 16:35] LABS: LYMPHOCYTES,BODY FLUID 80 %; MONO/MACROPHG,BODY FLUID 20 %
[2020-12-13 17:19] LABS: NEUTROPHILS,BODY FLUID 0 %
[2020-12-13] MEDS: WARFARIN SOD 1 MG TAB PO SCH (17:59)
[2020-12-13] MEDS: ATORVASTATIN 20 MG TAB PO SCH (21:03)
[2020-12-14] VITALS (19 sets, daily range): BP systolic 55–124; BP diastolic 32–96
[2020-12-14 05:41] LABS: BASOPHILS # (AUTO) 0.1 (0.0-0.1); BASOPHILS % 1.3 % (0.0-1.0); EOSINOPHILS # (AUTO) 1.3 (0.0-0.4); HEMATOCRIT 30.4 % (38.2-49.6); HEMOGLOBIN 9.6 g/dL (14.0-18.0); LYMPHOCYTES # (AUTO) 1.4 (1.0-3.2); LYMPHOCYTES % 15.6 % (18.0-39.1); MEAN CORPUSCULAR HEMOGLOBIN 30.9 pg (28-32); MEAN CORPUSCULAR HGB CONC 31.6 g/dL (31-35); MEAN CORPUSCULAR VOLUME 97.7 fL (81-99); MONOCYTES # (AUTO) 0.7 (0.2-0.8); MONOCYTES % 8.2 % (4.4-11.3); NEUTROPHILS # (AUTO) 5.4 (2.1-6.9); NEUTROPHILS % 60.1 % (38.7-80.0); PLATELET COUNT 286 x10e3/uL (140-360); RED BLOOD COUNT 3.11 x10e6/uL (4.3-5.7); RED CELL DISTRIBUTION WIDTH 14.2 % (11.7-14.4)
[2020-12-14 05:59] LABS: INR 1.74; PROTHROMBIN TIME 21.6 seconds (11.9-14.5)
[2020-12-14] MEDS: MIDODRINE HCL 5 MG TABLET PO SCH ×3 (06:12→22:09)
[2020-12-14] MEDS: LEVOTHYROXINE SODIUM 125 MCG TAB PO SCH (06:12)
[2020-12-14 06:20] LABS: ALBUMIN 1.8 g/dL (3.5-5.0); ALBUMIN/GLOBULIN RATIO 0.6 (0.8-2.0); ANION GAP 17.4 mmol/L (8-16); CALCIUM 7.3 mg/dL (8.4-10.2); CREATININE, SERUM 6.22 mg/dL (0.72-1.25); POTASSIUM 3.4 mmol/L (3.5-5.1)
[2020-12-14] MEDS: BACITRACIN ZINC 15 GM OINT TOP SCH (09:45)
[2020-12-14] MEDS: COLLAGENASE 5 GM TUBE TP SCH (09:45)
[2020-12-14] MEDS: ASPIRIN 81 MG CHEW TAB PO SCH (09:47)
[2020-12-14] MEDS: GABAPENTIN 100 MG CAP PO SCH (09:47)
[2020-12-14] MEDS: WARFARIN SOD 1 MG TAB PO SCH (17:18)
[2020-12-14] MEDS: ATORVASTATIN 20 MG TAB PO SCH (19:54)
[2020-12-15] VITALS (14 sets, daily range): BP systolic 56–86; BP diastolic 43–56
[2020-12-15 05:42] LABS: INR 1.8; PROTHROMBIN TIME 22.3 seconds (11.9-14.5)
[2020-12-15] MEDS: MIDODRINE HCL 5 MG TABLET PO SCH ×3 (06:08→20:50)
[2020-12-15] MEDS: LEVOTHYROXINE SODIUM 125 MCG TAB PO SCH (06:08)
[2020-12-15] MEDS: ASPIRIN 81 MG CHEW TAB PO SCH (08:03)
[2020-12-15] MEDS: COLLAGENASE 5 GM TUBE TP SCH (08:03)
[2020-12-15] MEDS: GABAPENTIN 100 MG CAP PO SCH (08:03)
[2020-12-15] MEDS: BACITRACIN ZINC 15 GM OINT TOP SCH (08:03)
[2020-12-15] MEDS ORDERED: LIDOCAINE HCL 1% LOCAL INJ 20 ML VIAL ONE (09:13)
[2020-12-15 12:41] LABS: INR 1.79; PROTHROMBIN TIME 22.2 seconds (11.9-14.5)
[2020-12-15] MEDS ORDERED: POTASSIUM CHLORIDE 20 MEQ TAB CR PO ONE (15:15)
[2020-12-15] MEDS: WARFARIN SOD 2 MG TAB PO SCH (15:40)
[2020-12-15] MEDS: ATORVASTATIN 20 MG TAB PO SCH (20:49)
[2020-12-16] VITALS (8 sets, daily range): BP systolic 70–90; BP diastolic 43–79
[2020-12-16 05:26] LABS: ANION GAP 16.2 mmol/L (8-16); CALCIUM 7.5 mg/dL (8.4-10.2); CREATININE, SERUM 6.24 mg/dL (0.72-1.25); MAGNESIUM 1.5 MG/DL (1.3-2.1); PHOSPHORUS 4.5 MG/DL (2.3-4.7); POTASSIUM 4.2 mmol/L (3.5-5.1)
[2020-12-16] MEDS: MIDODRINE HCL 5 MG TABLET PO SCH ×3 (05:32→22:00)
[2020-12-16] MEDS: LEVOTHYROXINE SODIUM 125 MCG TAB PO SCH (05:32)
[2020-12-16] MEDS: ASPIRIN 81 MG CHEW TAB PO SCH (08:27)
[2020-12-16] MEDS: GABAPENTIN 100 MG CAP PO SCH (08:27)
[2020-12-16] MEDS: BACITRACIN ZINC 15 GM OINT TOP SCH (11:50)
[2020-12-16] MEDS: COLLAGENASE 5 GM TUBE TP SCH (11:50)
[2020-12-16] MEDS: WARFARIN SOD 1 MG TAB PO SCH (17:00)
[2020-12-16] MEDS: ATORVASTATIN 20 MG TAB PO SCH (21:00)
[2020-12-17] VITALS (10 sets, daily range): BP systolic 76–154; BP diastolic 54–104
[2020-12-17] MEDS: MIDODRINE HCL 5 MG TABLET PO SCH ×3 (05:40→21:23)
[2020-12-17] MEDS: LEVOTHYROXINE SODIUM 125 MCG TAB PO SCH (05:40)
[2020-12-17 08:12] LABS: ANION GAP 18.1 mmol/L (8-16); CALCIUM 7.9 mg/dL (8.4-10.2); CREATININE, SERUM 5.95 mg/dL (0.72-1.25); POTASSIUM 4.1 mmol/L (3.5-5.1)
[2020-12-17] MEDS: COLLAGENASE 5 GM TUBE TP SCH (08:19)
[2020-12-17] MEDS: ASPIRIN 81 MG CHEW TAB PO SCH (08:19)
[2020-12-17] MEDS: GABAPENTIN 100 MG CAP PO SCH (08:19)
[2020-12-17] MEDS: BACITRACIN ZINC 15 GM OINT TOP SCH (08:19)
[2020-12-17] MEDS: WARFARIN SOD 1 MG TAB PO SCH (16:32)
[2020-12-17] MEDS: ATORVASTATIN 20 MG TAB PO SCH (21:23)
[2020-12-18] VITALS (8 sets, daily range): BP systolic 76–97; BP diastolic 54–65
[2020-12-18 05:14] LABS: INR 1.78; PROTHROMBIN TIME 22.1 seconds (11.9-14.5)
[2020-12-18 05:42] LABS: ANION GAP 18.6 mmol/L (8-16); CALCIUM 7.5 mg/dL (8.4-10.2); CREATININE, SERUM 5.62 mg/dL (0.72-1.25); POTASSIUM 4.6 mmol/L (3.5-5.1)
[2020-12-18] MEDS: LEVOTHYROXINE SODIUM 125 MCG TAB PO SCH (05:54)
[2020-12-18] MEDS: MIDODRINE HCL 5 MG TABLET PO SCH ×3 (05:54→22:12)
[2020-12-18] MEDS: ASPIRIN 81 MG CHEW TAB PO SCH (08:51)
[2020-12-18] MEDS: GABAPENTIN 100 MG CAP PO SCH (08:51)
[2020-12-18] MEDS: BACITRACIN ZINC 15 GM OINT TOP SCH (08:51)
[2020-12-18] MEDS: COLLAGENASE 5 GM TUBE TP SCH (08:51)
[2020-12-18] MEDS ORDERED: WARFARIN SOD 1 MG TAB PO SCH (17:00)
[2020-12-18] MEDS: SODIUM BICARBONATE 650 MG TAB PO SCH (17:15)
[2020-12-18] MEDS: ATORVASTATIN 20 MG TAB PO SCH (22:12)
[2020-12-19] VITALS: BP 78/35
[2020-12-19 04:00] VITALS: BP 90/49
[2020-12-19 05:51] LABS: INR 1.56; PROTHROMBIN TIME 19.8 seconds (11.9-14.5)
[2020-12-19] MEDS: MIDODRINE HCL 5 MG TABLET PO SCH ×2 (06:05→14:18)
[2020-12-19] MEDS: LEVOTHYROXINE SODIUM 125 MCG TAB PO SCH (06:15)
[2020-12-19 07:28] LABS: BASOPHILS % 0.3 % (0.0-1.0); EOSINOPHILS # (AUTO) 0.4 (0.0-0.4); EOSINOPHILS % 3.2 % (0.0-6.0); HEMATOCRIT 29.3 % (38.2-49.6); HEMOGLOBIN 9.5 g/dL (14.0-18.0); LYMPHOCYTES # (AUTO) 1.8 (1.0-3.2); LYMPHOCYTES % 15.9 % (18.0-39.1); MEAN CORPUSCULAR HEMOGLOBIN 30.6 pg (28-32); MEAN CORPUSCULAR HGB CONC 32.4 g/dL (31-35); MEAN CORPUSCULAR VOLUME 94.5 fL (81-99); MONOCYTES # (AUTO) 0.6 (0.2-0.8); MONOCYTES % 5.5 % (4.4-11.3); NEUTROPHILS # (AUTO) 8.6 (2.1-6.9); NEUTROPHILS % 74.2 % (38.7-80.0); PLATELET COUNT 541 x10e3/uL (140-360); RED CELL DISTRIBUTION WIDTH 14.6 % (11.7-14.4)
[2020-12-19 07:31] VITALS: BP 93/52
[2020-12-19 07:31] LABS: ALBUMIN 2.2 g/dL (3.5-5.0); ALBUMIN/GLOBULIN RATIO 0.7 (0.8-2.0); CALCIUM 7.5 mg/dL (8.4-10.2); CREATININE, SERUM 5.84 mg/dL (0.72-1.25); MAGNESIUM 1.3 MG/DL (1.3-2.1); PHOSPHORUS 4.3 MG/DL (2.3-4.7)
[2020-12-19 09:15] VITALS: BP 93/52
[2020-12-19] MEDS: ASPIRIN 81 MG CHEW TAB PO SCH (09:43)
[2020-12-19] MEDS: GABAPENTIN 100 MG CAP PO SCH (09:43)
[2020-12-19] MEDS: SODIUM BICARBONATE 650 MG TAB PO SCH (09:43)
[2020-12-19] MEDS: COLLAGENASE 5 GM TUBE TP SCH (09:43)
[2020-12-19 11:12] VITALS: BP 72/48
[2020-12-19 14:48] VITALS: BP 80/54
[2020-12-19] MEDS ORDERED: EPOETIN ALFA-EPBX 10,000 UNIT/ML VIAL SC SCH (15:45)
[2020-12-19] MEDS ORDERED: MIDODRINE HCL5 MG PO (17:13)
== END 2020-12-19 17:57 | disposition home or self-care (01) | DRG 291 ==
LOC: ER 13:08 → ERHOLD 21:36 → ICU 23:59 → MED/SURG2 12-15 17:54
PROVIDERS: ADMIT Family Medicine; ATTEND Family Medicine
PROC: 3E1M39Z Irrigation of Peritoneal Cavity using Dialysate, Percutaneous Approach (ICD-10-PCS; principal; 2020-12-11)
PROC: 0JH60XZ Insertion of Tunneled Vascular Access Device into Chest Subcutaneous Tissue and Fascia, Open Approach (ICD-10-PCS; 2020-12-15)
PROC: 02HV33Z Insertion of Infusion Device into Superior Vena Cava, Percutaneous Approach (ICD-10-PCS; 2020-12-15)
PROC: 5A1D70Z Performance of Urinary Filtration, Intermittent, Less than 6 Hours Per Day (ICD-10-PCS; 2020-12-16)
DX: I13.2 Hypertensive heart and chronic kidney disease with heart failure and with stage 5 chronic kidney disease, or end stage renal disease (principal); N18.6 End stage renal disease; I50.23 Acute on chronic systolic (congestive) heart failure; I47.2 Ventricular tachycardia; E87.1 Hypo-osmolality and hyponatremia; E11.22 Type 2 diabetes mellitus with diabetic chronic kidney disease; D64.9 Anemia, unspecified; I48.0 Paroxysmal atrial fibrillation; Z96.652 Presence of left artificial knee joint; I25.10 Atherosclerotic heart disease of native coronary artery without angina pectoris; Z95.5 Presence of coronary angioplasty implant and graft; Z95.810 Presence of automatic (implantable) cardiac defibrillator; I95.89 Other hypotension; E87.6 Hypokalemia; M17.0 Bilateral primary osteoarthritis of knee; I42.8 Other cardiomyopathies; E03.9 Hypothyroidism, unspecified; Z20.822 Contact with and (suspected) exposure to COVID-19; Z87.891 Personal history of nicotine dependence
CPT/HCPCS: 36415; 36589; 70450; 71045; 74470; 80048; 80053; 82550; 82553; 83605; 83735; 83880; 84100; 84484; 85025; 85610; 87040; 87070; 87102; 87205; 87206; 89051; 93005; 93306; 93970; 93971; 97139; 99251; 99284; J2001; J3480; J7030; J7040; J7050; P9045; U0002

== ENCOUNTER 2021-03-01 14:21 | Inpatient (IN) | payer MEDICARE, OTHER ==
[~2021-03-01] VITALS: Ht 177.8 cm; Wt 81.4 kg
[2021-03-01] MEDS ORDERED: SODIUM CHLORIDE 0.9% 1000ML 1,000 ML IV STA (15:25)
[2021-03-01] MEDS ORDERED: CEFEPIME 2 GM/NS 0.9% 100 ML 100 ML IV NR (15:30)
[2021-03-01] MEDS ORDERED: VANCOMYCIN 1GM/NS 250 ML 250 ML IV ONE (16:30)
[2021-03-01 16:39] LABS: BASOPHILS # (AUTO) 0.1 (0.0-0.1); BASOPHILS % 0.6 % (0.0-1.0); EOSINOPHILS # (AUTO) 0.1 (0.0-0.4); EOSINOPHILS % 0.6 % (0.0-6.0); HEMATOCRIT 31.1 % (38.2-49.6); HEMOGLOBIN 9.8 g/dL (14.0-18.0); LYMPHOCYTES # (AUTO) 1.3 (1.0-3.2); LYMPHOCYTES % 10.6 % (18.0-39.1); MEAN CORPUSCULAR HEMOGLOBIN 30.9 pg (28-32); MEAN CORPUSCULAR HGB CONC 31.5 g/dL (31-35); MEAN CORPUSCULAR VOLUME 98.1 fL (81-99); MONOCYTES # (AUTO) 0.8 (0.2-0.8); MONOCYTES % 6.3 % (4.4-11.3); NEUTROPHILS # (AUTO) 9.7 (2.1-6.9); NEUTROPHILS % 81.3 % (38.7-80.0); PLATELET COUNT 355 x10e3/uL (140-360); RED BLOOD COUNT 3.17 x10e6/uL (4.3-5.7); RED CELL DISTRIBUTION WIDTH 16.2 % (11.7-14.4)
[2021-03-01] MEDS ORDERED: ZOLPIDEM TARTRATE 5 MG TAB PO PRN (16:45)
[2021-03-01 16:49] LABS: INR 2.21; PROTHROMBIN TIME 25.3 seconds (11.9-14.5)
[2021-03-01 16:50] LABS: PARTIAL THROMBOPLASTIN TIME 54.9 seconds (23.8-35.5)
[2021-03-01] MEDS ORDERED: NOREPINEPHRINE INJ 4MG/4ML 8 MG in DEXTROSE 5% 250ML 250 ML IV STA (16:54)
[2021-03-01 16:57] LABS: ALBUMIN 2.3 g/dL (3.5-5.0); ALBUMIN/GLOBULIN RATIO 0.7 (0.8-2.0); ALKALINE PHOSPHATASE 72 IU/L (40-150); ANION GAP 29.3 mmol/L (8-16); BLOOD UREA NITROGEN 47 mg/dL (7-26); BUN/CREATININE RATIO 5 (6-25); CALCIUM 8.4 mg/dL (8.4-10.2); CARBON DIOXIDE 19 mmol/L (22-29); CHLORIDE 93 mmol/L (98-107); CREATINE KINASE 968 IU/L (30-200); CREATININE, SERUM 9.77 mg/dL (0.72-1.25); EST GLOMERULAR FILTRATION RATE 5 ML/MIN (60-); GLUCOSE 82 mg/dL (74-118); POTASSIUM 4.3 mmol/L (3.5-5.1); SODIUM 137 mmol/L (136-145)
[2021-03-01] MEDS ORDERED: DEXTROSE 50% SYRINGE 50 ML IV PRN (17:00)
[2021-03-01] MEDS ORDERED: SODIUM CHLORIDE 0.9% 1000ML 1,000 ML IV SCH ×2 (17:00)
[2021-03-01] MEDS ORDERED: ASPIRIN 81 MG CHEW TAB PO ONE (17:00)
[2021-03-01 17:04] LABS: ALANINE AMINOTRANSFERASE < 6 IU/L (0-55)
[2021-03-01] MEDS ORDERED: NOREPINEPHRINE 8 MG/D5W 250 ML 250 ML ONE ×2 (17:20→23:34)
[2021-03-01] MEDS: NOREPINEPHRINE INJ 4MG/4ML 8 MG in DEXTROSE 5% 250ML 250 ML IV PRN (17:35)
[2021-03-01] MEDS ORDERED: PANTOPRAZOLE 40 MG 10ML VIAL IV SCH (18:30)
[2021-03-01 20:21] VITALS: BP 89/57
[2021-03-01] MEDS: INSULIN REGULAR, HUMAN 100 UNIT/1 ML 3ML VIAL SQ SCH (21:00)
[2021-03-01] MEDS: ATORVASTATIN 20 MG TAB PO SCH (21:47)
[2021-03-01] MEDS: MIDODRINE HCL 5 MG TABLET PO SCH (21:47)
[2021-03-01 22:00] VITALS: BP 80/57
[2021-03-01] MEDS ORDERED: SODIUM CHLORIDE 0.9% 1000ML 2,000 ML ONE (22:07)
[2021-03-01] MEDS ORDERED: SODIUM CHLORIDE 0.9% 1000ML 1,000 ML IV ONE (22:15)
[2021-03-01] MEDS ORDERED: AMIODARONE HCL200 MG PO (22:21)
[2021-03-01] MEDS ORDERED: CEPHALEXIN250 MG PO (22:21)
[2021-03-01] MEDS ORDERED: COLLAGENASE TOP (22:23)
[2021-03-01] MEDS ORDERED: MIDODRINE HCL5 MG PO (22:26)
[2021-03-01] MEDS ORDERED: RENVELA0.8 GM PO (22:27)
[2021-03-01] MEDS: SUCRALFATE 1 GM/10 ML SUSP PO SCH (22:33)
[2021-03-01] MEDS: PANTOPRAZOLE 40 MG 10ML VIAL IV SCH (22:33)
[2021-03-01 23:08] VITALS: BP 100/64
[2021-03-01 23:35] LABS: FERRITIN 10638.74 ng/mL (21.81-274.66)
[2021-03-02] VITALS (26 sets, daily range): BP systolic 77–100; BP diastolic 46–70
[2021-03-02 00:23] LABS: BASOPHILS # (AUTO) 0.1 (0.0-0.1); BASOPHILS % 0.5 % (0.0-1.0); EOSINOPHILS # (AUTO) 0.1 (0.0-0.4); EOSINOPHILS % 0.3 % (0.0-6.0); HEMATOCRIT 31.7 % (38.2-49.6); HEMOGLOBIN 9.9 g/dL (14.0-18.0); LYMPHOCYTES # (AUTO) 1.3 (1.0-3.2); LYMPHOCYTES % 6.9 % (18.0-39.1); MEAN CORPUSCULAR HEMOGLOBIN 30.9 pg (28-32); MEAN CORPUSCULAR HGB CONC 31.2 g/dL (31-35); MEAN CORPUSCULAR VOLUME 99.1 fL (81-99); MONOCYTES # (AUTO) 1.2 (0.2-0.8); MONOCYTES % 6.4 % (4.4-11.3); NEUTROPHILS % 85.2 % (38.7-80.0); RED CELL DISTRIBUTION WIDTH 16.2 % (11.7-14.4)
[2021-03-02 00:33] LABS: PLATELET COUNT 422 x10e3/uL (140-360)
[2021-03-02 00:35] LABS: INR 2.17; PROTHROMBIN TIME 24.9 seconds (11.9-14.5)
[2021-03-02 01:13] LABS: CREATINE KINASE MB 18.5 ng/mL (0-5.0)
[2021-03-02] MEDS ORDERED: SODIUM CHLORIDE 0.9% 1000ML 1,000 ML IV SCH (01:15)
[2021-03-02] MEDS ORDERED: HYDROMORPHONE 1MG/1ML INJ IV STA (03:00)
[2021-03-02] MEDS ORDERED: VASOPRESSIN 60 UNIT in DEXTROSE 5% 50ML 57 ML IV PRN (03:15)
[2021-03-02] MEDS ORDERED: VASOPRESSIN INJ 20 UNIT/ML VIAL ONE (03:19)
[2021-03-02 04:12] LABS: BASOPHILS # (AUTO) 0.1 (0.0-0.1); BASOPHILS % 0.7 % (0.0-1.0); EOSINOPHILS # (AUTO) 0.1 (0.0-0.4); EOSINOPHILS % 0.5 % (0.0-6.0); HEMATOCRIT 31.6 % (38.2-49.6); HEMOGLOBIN 9.8 g/dL (14.0-18.0); LYMPHOCYTES # (AUTO) 1.5 (1.0-3.2); MEAN CORPUSCULAR HEMOGLOBIN 30.8 pg (28-32); MEAN CORPUSCULAR VOLUME 99.4 fL (81-99); MONOCYTES # (AUTO) 1.1 (0.2-0.8); MONOCYTES % 5.4 % (4.4-11.3); NEUTROPHILS # (AUTO) 16.4 (2.1-6.9); NEUTROPHILS % 84.7 % (38.7-80.0); PLATELET COUNT 449 x10e3/uL (140-360); RED BLOOD COUNT 3.18 x10e6/uL (4.3-5.7); RED CELL DISTRIBUTION WIDTH 16.1 % (11.7-14.4)
[2021-03-02] MEDS ORDERED: NOREPINEPHRINE 8 MG/D5W 250 ML 250 ML ONE (04:25)
[2021-03-02 04:27] LABS: INR 2.06
[2021-03-02 04:28] LABS: PARTIAL THROMBOPLASTIN TIME 55.6 seconds (23.8-35.5)
[2021-03-02 04:33] LABS: MAGNESIUM 1.8 MG/DL (1.3-2.1); PHOSPHORUS 8.9 MG/DL (2.3-4.7)
[2021-03-02 04:35] LABS: ALBUMIN 2.3 g/dL (3.5-5.0); ALBUMIN/GLOBULIN RATIO 0.7 (0.8-2.0); ANION GAP 20.8 mmol/L (8-16); CALCIUM 7.7 mg/dL (8.4-10.2); CREATININE, SERUM 8.95 mg/dL (0.72-1.25); POTASSIUM 3.8 mmol/L (3.5-5.1)
[2021-03-02 04:37] LABS: ALBUMIN 2.2 g/dL (3.5-5.0); BILIRUBIN,DIRECT 0.2 mg/dL (0.0-0.5); CHOL/HDL RATIO 3.1 (3.9-4.7)
[2021-03-02 04:40] LABS: B-TYPE NATRIURETIC PEPTIDE2 548.3 pg/mL (0-100)
[2021-03-02] MEDS: LEVOTHYROXINE SODIUM 125 MCG TAB PO SCH (06:09)
[2021-03-02] MEDS: MIDODRINE HCL 5 MG TABLET PO SCH ×2 (06:09→14:04)
[2021-03-02] MEDS: INSULIN REGULAR, HUMAN 100 UNIT/1 ML 3ML VIAL SQ SCH ×4 (07:30→20:12)
[2021-03-02] MEDS: SUCRALFATE 1 GM/10 ML SUSP PO SCH ×4 (07:59→20:12)
[2021-03-02] MEDS: NOREPINEPHRINE INJ 4MG/4ML 8 MG in DEXTROSE 5% 250ML 250 ML IV PRN ×3 (09:20→19:32)
[2021-03-02] MEDS: PANTOPRAZOLE 40 MG 10ML VIAL IV SCH ×2 (09:22→23:08)
[2021-03-02] MEDS ORDERED: ALBUMIN 5% 0.05 GM/ML BTL IV ONE (10:45)
[2021-03-02] MEDS: SODIUM BICARBONATE 8.4% SYRING 150 ML in DEXTROSE 5% 1,000 ML IV SCH (11:39)
[2021-03-02] MEDS ORDERED: CEFEPIME HCL 1 GM VIAL IV SCH (12:15)
[2021-03-02 12:45] LABS: CREATINE KINASE MB 38.9 ng/mL (0-5.0)
[2021-03-02 14:01] LABS: BODY FLUID APPEARANCE CLEAR; BODY FLUID COLOR YELLOW; BODY FLUID TYPE PERITONEAL
[2021-03-02 14:02] LABS: RBC,BODY FLUID < 2000 cells/uL; WBC,BODY FLUID 23 cells/uL
[2021-03-02] MEDS ORDERED: ALBUMIN 25% 25GM 100ML 0.25 GM/ML BTL IV ONE (15:30)
[2021-03-02 15:37] LABS: EOSINOPHILS,BODY FLUID 1 %; LYMPHOCYTES,BODY FLUID 18 %; MONO/MACROPHG,BODY FLUID 32 %; NEUTROPHILS,BODY FLUID 43 %; OTHER CELLS,BODY FLUID 6 %
[2021-03-02] MEDS ORDERED: ALBUMIN 25% 25GM 100ML 100 ML IV ONE (15:45)
[2021-03-02] MEDS ORDERED: CEFEPIME HCL 1GM 1 GM in SODIUM CHLORIDE 0.9% 50ML 50 ML IV SCH (16:00)
[2021-03-02] MEDS ORDERED: WARFARIN SOD 2 MG TAB PO SCH (17:00)
[2021-03-02] MEDS ORDERED: DIATRIZOATE MEGL/DIATRIZOA SOD 30 ML BTL PO ONE (17:44)
[2021-03-02] MEDS: VANCOMYCIN HCL 125 MG CAPSULE PO SCH ×2 (18:36→23:08)
[2021-03-02 19:02] LABS: CREATINE KINASE MB 32.2 ng/mL (0-5.0)
[2021-03-02] MEDS: ATORVASTATIN 20 MG TAB PO SCH (20:12)
[2021-03-03] VITALS (25 sets, daily range): BP systolic 76–105; BP diastolic 47–70
[2021-03-03] MEDS: NOREPINEPHRINE INJ 4MG/4ML 8 MG in DEXTROSE 5% 250ML 250 ML IV PRN ×2 (02:00→07:44)
[2021-03-03 04:51] LABS: BASOPHILS # (AUTO) 0.1 (0.0-0.1); BASOPHILS % 0.9 % (0.0-1.0); EOSINOPHILS # (AUTO) 1.1 (0.0-0.4); EOSINOPHILS % 8.9 % (0.0-6.0); HEMATOCRIT 22.4 % (38.2-49.6); HEMOGLOBIN 7.2 g/dL (14.0-18.0); LYMPHOCYTES # (AUTO) 1.3 (1.0-3.2); LYMPHOCYTES % 11.3 % (18.0-39.1); MEAN CORPUSCULAR HEMOGLOBIN 31.2 pg (28-32); MEAN CORPUSCULAR HGB CONC 32.1 g/dL (31-35); MONOCYTES # (AUTO) 0.9 (0.2-0.8); MONOCYTES % 7.2 % (4.4-11.3); NEUTROPHILS # (AUTO) 8.4 (2.1-6.9); NEUTROPHILS % 71.4 % (38.7-80.0); PLATELET COUNT 248 x10e3/uL (140-360); RED BLOOD COUNT 2.31 x10e6/uL (4.3-5.7); RED CELL DISTRIBUTION WIDTH 15.9 % (11.7-14.4)
[2021-03-03 05:08] LABS: ALBUMIN 2.4 g/dL (3.5-5.0); ALKALINE PHOSPHATASE 55 IU/L (40-150); ANION GAP 17.2 mmol/L (8-16); BLOOD UREA NITROGEN 45 mg/dL (7-26); BUN/CREATININE RATIO 6 (6-25); CALCIUM 7.6 mg/dL (8.4-10.2); CARBON DIOXIDE 23 mmol/L (22-29); CHLORIDE 94 mmol/L (98-107); CREATININE, SERUM 7.91 mg/dL (0.72-1.25); EST GLOMERULAR FILTRATION RATE 7 ML/MIN (60-); GLUCOSE 92 mg/dL (74-118); POTASSIUM 3.2 mmol/L (3.5-5.1); SODIUM 131 mmol/L (136-145)
[2021-03-03] MEDS: LEVOTHYROXINE SODIUM 125 MCG TAB PO SCH (05:26)
[2021-03-03] MEDS: VANCOMYCIN HCL 125 MG CAPSULE PO SCH ×4 (05:27→23:23)
[2021-03-03 05:59] LABS: ALANINE AMINOTRANSFERASE < 6 IU/L (0-55)
[2021-03-03] MEDS ORDERED: DIATRIZOATE MEGL/DIATRIZOA SOD 30 ML BTL PO ONE (07:00)
[2021-03-03] MEDS: SUCRALFATE 1 GM/10 ML SUSP PO SCH ×4 (07:12→21:09)
[2021-03-03] MEDS: INSULIN REGULAR, HUMAN 100 UNIT/1 ML 3ML VIAL SQ SCH ×3 (07:16→16:30)
[2021-03-03] MEDS: MIDODRINE HCL 5 MG TABLET PO SCH ×3 (08:21→18:15)
[2021-03-03] MEDS ORDERED: LEVETIRACETAM 500 MG TAB PO SCH (09:00)
[2021-03-03] MEDS ORDERED: POTASSIUM CHLORIDE 10MEQ EA PO ONE (09:45)
[2021-03-03] MEDS: LEVETIRACETAM ORAL SOLUTION 500 MG/5 ML SOLN PO SCH (09:59)
[2021-03-03] MEDS: SODIUM BICARBONATE 8.4% SYRING 150 ML in DEXTROSE 5% 1,000 ML IV SCH (10:55)
[2021-03-03] MEDS: PANTOPRAZOLE 40 MG 10ML VIAL IV SCH ×2 (10:58→21:09)
[2021-03-03] MEDS ORDERED: SODIUM CHLORIDE 0.9% 250ML 250 ML IV ONE ×2 (12:45→17:15)
[2021-03-03 12:46] LABS: INR 2.53
[2021-03-03] MEDS: FLUDROCORTISONE ACETATE 0.1 MG TAB PO SCH (13:18)
[2021-03-03] MEDS ORDERED: SODIUM CHLORIDE 0.9% 250ML 250 ML IV NR (13:30)
[2021-03-03 14:51] LABS: BASOPHILS # (AUTO) 0.1 (0.0-0.1); BASOPHILS % 0.6 % (0.0-1.0); EOSINOPHILS # (AUTO) 0.9 (0.0-0.4); EOSINOPHILS % 7.4 % (0.0-6.0); HEMOGLOBIN 7.4 g/dL (14.0-18.0); LYMPHOCYTES # (AUTO) 1.3 (1.0-3.2); LYMPHOCYTES % 10.4 % (18.0-39.1); MEAN CORPUSCULAR HEMOGLOBIN 31.2 pg (28-32); MEAN CORPUSCULAR HGB CONC 32.2 g/dL (31-35); MONOCYTES # (AUTO) 0.7 (0.2-0.8); MONOCYTES % 5.7 % (4.4-11.3); NEUTROPHILS % 75.5 % (38.7-80.0); PLATELET COUNT 252 x10e3/uL (140-360); RED BLOOD COUNT 2.37 x10e6/uL (4.3-5.7); RED CELL DISTRIBUTION WIDTH 16.5 % (11.7-14.4)
[2021-03-03] MEDS ORDERED: WARFARIN SOD 1 MG TAB PO SCH (17:00)
[2021-03-03 20:41] LABS: HEMATOCRIT 25.3 % (38.2-49.6); HEMOGLOBIN 8.4 g/dL (14.0-18.0)
[2021-03-03] MEDS: ATORVASTATIN 20 MG TAB PO SCH (21:09)
[2021-03-03] MEDS ORDERED: HYDROCODONE/APAP 5MG-325MG TAB PO PRN (23:30)
[2021-03-04] VITALS (26 sets, daily range): BP systolic 64–100; BP diastolic 46–68
[2021-03-04 04:51] LABS: BASOPHILS # (AUTO) 0.1 (0.0-0.1); BASOPHILS % 0.8 % (0.0-1.0); EOSINOPHILS % 11.4 % (0.0-6.0); HEMATOCRIT 23.1 % (38.2-49.6); HEMOGLOBIN 7.7 g/dL (14.0-18.0); LYMPHOCYTES % 11.8 % (18.0-39.1); MEAN CORPUSCULAR HEMOGLOBIN 31.3 pg (28-32); MEAN CORPUSCULAR HGB CONC 33.3 g/dL (31-35); MEAN CORPUSCULAR VOLUME 93.9 fL (81-99); MONOCYTES # (AUTO) 0.7 (0.2-0.8); MONOCYTES % 7.5 % (4.4-11.3); NEUTROPHILS % 68.3 % (38.7-80.0); PLATELET COUNT 204 x10e3/uL (140-360); RED BLOOD COUNT 2.46 x10e6/uL (4.3-5.7); RED CELL DISTRIBUTION WIDTH 16.1 % (11.7-14.4)
[2021-03-04 05:13] LABS: ALBUMIN/GLOBULIN RATIO 0.9 (0.8-2.0); ALKALINE PHOSPHATASE 67 IU/L (40-150); ANION GAP 14.4 mmol/L (8-16); BLOOD UREA NITROGEN 41 mg/dL (7-26); BUN/CREATININE RATIO 6 (6-25); CARBON DIOXIDE 26 mmol/L (22-29); CHLORIDE 91 mmol/L (98-107); CREATININE, SERUM 7.34 mg/dL (0.72-1.25); EST GLOMERULAR FILTRATION RATE 7 ML/MIN (60-); GLUCOSE 92 mg/dL (74-118); POTASSIUM 3.4 mmol/L (3.5-5.1); SODIUM 128 mmol/L (136-145)
[2021-03-04 05:17] LABS: ALANINE AMINOTRANSFERASE < 6 IU/L (0-55)
[2021-03-04] MEDS: LEVOTHYROXINE SODIUM 125 MCG TAB PO SCH (05:26)
[2021-03-04] MEDS: VANCOMYCIN HCL 125 MG CAPSULE PO SCH (05:26)
[2021-03-04] MEDS ORDERED: MORPHINE SULFATE INJ 2 MG/ML SYR ONE (06:39)
[2021-03-04] MEDS ORDERED: MORPHINE SULFATE INJ 2 MG/ML SYR IV ONE (06:45)
[2021-03-04] MEDS: SUCRALFATE 1 GM/10 ML SUSP PO SCH ×4 (07:30→20:54)
[2021-03-04] MEDS ORDERED: POTASSIUM CHLORIDE 20MEQ/100ML 100 ML IV ONE (07:35)
[2021-03-04] MEDS ORDERED: METHYLPREDNISOLONE SOD SUCC 125 MG/2ML VIAL IV ONE (07:50)
[2021-03-04] MEDS: MIDODRINE HCL 5 MG TABLET PO SCH ×3 (08:00→16:00)
[2021-03-04] MEDS ORDERED: LORAZEPAM INJ 2 MG/ML VIAL ONE (08:10)
[2021-03-04] MEDS ORDERED: ZIPRASIDONE 20 MG VIAL IM ONE (08:10)
[2021-03-04] MEDS: COLLAGENASE OINTMENT 30 GM TUBE TP SCH (08:57)
[2021-03-04] MEDS: SODIUM BICARBONATE 8.4% SYRING 150 ML in DEXTROSE 5% 1,000 ML IV SCH (09:00)
[2021-03-04] MEDS: LEVETIRACETAM ORAL SOLUTION 500 MG/5 ML SOLN PO SCH (09:00)
[2021-03-04] MEDS: FLUDROCORTISONE ACETATE 0.1 MG TAB PO SCH (09:00)
[2021-03-04] MEDS: PANTOPRAZOLE 40 MG 10ML VIAL IV SCH ×2 (10:15→22:15)
[2021-03-04 10:34] LABS: INR 2.32; PROTHROMBIN TIME 26.2 seconds (11.9-14.5)
[2021-03-04] MEDS ORDERED: MAGNESIUM SULFATE 2GM/50ML 50 ML IV PRN (13:00)
[2021-03-04] MEDS: SODIUM CHLORIDE 1 GM TAB PO SCH ×2 (13:32→20:54)
[2021-03-04] MEDS: WARFARIN SOD 1 MG TAB PO SCH (17:00)
[2021-03-04] MEDS: ATORVASTATIN 20 MG TAB PO SCH (20:54)
[2021-03-04] MEDS: NOREPINEPHRINE INJ 4MG/4ML 8 MG in DEXTROSE 5% 250ML 250 ML IV PRN (23:15)
[2021-03-05] VITALS (17 sets, daily range): BP systolic 76–94; BP diastolic 53–63
[2021-03-05] MEDS: LEVOTHYROXINE SODIUM 125 MCG TAB PO SCH (05:48)
[2021-03-05 06:45] LABS: BASOPHILS % 0.2 % (0.0-1.0); EOSINOPHILS % 0.2 % (0.0-6.0); HEMATOCRIT 23.4 % (38.2-49.6); HEMOGLOBIN 7.7 g/dL (14.0-18.0); LYMPHOCYTES # (AUTO) 0.8 (1.0-3.2); LYMPHOCYTES % 6.2 % (18.0-39.1); MEAN CORPUSCULAR HEMOGLOBIN 31.3 pg (28-32); MEAN CORPUSCULAR HGB CONC 32.9 g/dL (31-35); MEAN CORPUSCULAR VOLUME 95.1 fL (81-99); MONOCYTES # (AUTO) 0.5 (0.2-0.8); MONOCYTES % 3.8 % (4.4-11.3); PLATELET COUNT 198 x10e3/uL (140-360); RED BLOOD COUNT 2.46 x10e6/uL (4.3-5.7); RED CELL DISTRIBUTION WIDTH 16.1 % (11.7-14.4)
[2021-03-05 06:58] LABS: INR 1.82; PROTHROMBIN TIME 21.8 seconds (11.9-14.5)
[2021-03-05 07:02] LABS: ALBUMIN/GLOBULIN RATIO 0.8 (0.8-2.0); ALKALINE PHOSPHATASE 66 IU/L (40-150); BLOOD UREA NITROGEN 47 mg/dL (7-26); BUN/CREATININE RATIO 6 (6-25); CALCIUM 7.3 mg/dL (8.4-10.2); CARBON DIOXIDE 26 mmol/L (22-29); CHLORIDE 92 mmol/L (98-107); CREATININE, SERUM 7.57 mg/dL (0.72-1.25); EST GLOMERULAR FILTRATION RATE 7 ML/MIN (60-); GLUCOSE 85 mg/dL (74-118); SODIUM 131 mmol/L (136-145)
[2021-03-05 07:04] LABS: ALANINE AMINOTRANSFERASE < 6 IU/L (0-55)
[2021-03-05] MEDS: SODIUM CHLORIDE 1 GM TAB PO SCH ×3 (08:15→21:13)
[2021-03-05] MEDS: LEVETIRACETAM ORAL SOLUTION 500 MG/5 ML SOLN PO SCH (08:15)
[2021-03-05] MEDS: FLUDROCORTISONE ACETATE 0.1 MG TAB PO SCH (08:15)
[2021-03-05] MEDS: COLLAGENASE OINTMENT 30 GM TUBE TP SCH (08:15)
[2021-03-05] MEDS: MIDODRINE HCL 5 MG TABLET PO SCH ×3 (08:15→15:45)
[2021-03-05] MEDS: SUCRALFATE 1 GM/10 ML SUSP PO SCH ×4 (08:15→21:13)
[2021-03-05] MEDS: PANTOPRAZOLE 40 MG 10ML VIAL IV SCH ×2 (10:56→21:13)
[2021-03-05] MEDS ORDERED: SODIUM CHLORIDE 0.9% 250ML 250 ML IV ONE (13:45)
[2021-03-05] MEDS: AMIODARONE HCL 200 MG TAB PO SCH (16:15)
[2021-03-05] MEDS: WARFARIN SOD 1 MG TAB PO SCH (16:16)
[2021-03-05] MEDS: ATORVASTATIN 20 MG TAB PO SCH (21:13)
[2021-03-06] VITALS (15 sets, daily range): BP systolic 76–97; BP diastolic 52–76
[2021-03-06 05:39] LABS: BASOPHILS % 0.4 % (0.0-1.0); EOSINOPHILS # (AUTO) 0.3 (0.0-0.4); EOSINOPHILS % 2.8 % (0.0-6.0); HEMATOCRIT 23.8 % (38.2-49.6); HEMOGLOBIN 7.9 g/dL (14.0-18.0); LYMPHOCYTES # (AUTO) 1.8 (1.0-3.2); MEAN CORPUSCULAR HEMOGLOBIN 31.5 pg (28-32); MEAN CORPUSCULAR HGB CONC 33.2 g/dL (31-35); MEAN CORPUSCULAR VOLUME 94.8 fL (81-99); MONOCYTES # (AUTO) 0.5 (0.2-0.8); MONOCYTES % 5.3 % (4.4-11.3); NEUTROPHILS # (AUTO) 6.9 (2.1-6.9); PLATELET COUNT 221 x10e3/uL (140-360); RED BLOOD COUNT 2.51 x10e6/uL (4.3-5.7)
[2021-03-06 05:51] LABS: ALBUMIN 2.1 g/dL (3.5-5.0); ALBUMIN/GLOBULIN RATIO 0.8 (0.8-2.0); ALKALINE PHOSPHATASE 82 IU/L (40-150); ANION GAP 18.2 mmol/L (8-16); BLOOD UREA NITROGEN 47 mg/dL (7-26); BUN/CREATININE RATIO 6 (6-25); CALCIUM 7.4 mg/dL (8.4-10.2); CARBON DIOXIDE 24 mmol/L (22-29); CHLORIDE 96 mmol/L (98-107); CREATININE, SERUM 7.54 mg/dL (0.72-1.25); EST GLOMERULAR FILTRATION RATE 7 ML/MIN (60-); GLUCOSE 62 mg/dL (74-118); POTASSIUM 3.2 mmol/L (3.5-5.1); SODIUM 135 mmol/L (136-145)
[2021-03-06 05:52] LABS: ALANINE AMINOTRANSFERASE < 6 IU/L (0-55)
[2021-03-06] MEDS: LEVOTHYROXINE SODIUM 125 MCG TAB PO SCH (06:13)
[2021-03-06] MEDS: SUCRALFATE 1 GM/10 ML SUSP PO SCH ×4 (07:36→20:59)
[2021-03-06] MEDS: MIDODRINE HCL 5 MG TABLET PO SCH ×3 (07:36→17:16)
[2021-03-06] MEDS: COLLAGENASE OINTMENT 30 GM TUBE TP SCH (08:04)
[2021-03-06] MEDS: AMIODARONE HCL 200 MG TAB PO SCH ×2 (08:04→17:16)
[2021-03-06] MEDS: FLUDROCORTISONE ACETATE 0.1 MG TAB PO SCH (08:04)
[2021-03-06] MEDS: LEVETIRACETAM ORAL SOLUTION 500 MG/5 ML SOLN PO SCH (08:04)
[2021-03-06] MEDS: SODIUM CHLORIDE 1 GM TAB PO SCH ×3 (08:04→21:02)
[2021-03-06] MEDS: PANTOPRAZOLE 40 MG 10ML VIAL IV SCH ×2 (10:15→21:02)
[2021-03-06] MEDS ORDERED: LOPERAMIDE HCL 2 MG CAP PO PRN (12:00)
[2021-03-06] MEDS: WARFARIN SOD 1 MG TAB PO SCH (17:16)
[2021-03-06] MEDS: ATORVASTATIN 20 MG TAB PO SCH (21:02)
[2021-03-07] VITALS (8 sets, daily range): BP systolic 86–109; BP diastolic 58–65
[2021-03-07] MEDS: LEVOTHYROXINE SODIUM 125 MCG TAB PO SCH (05:12)
[2021-03-07 06:15] LABS: BASOPHILS % 0.6 % (0.0-1.0); EOSINOPHILS # (AUTO) 0.5 (0.0-0.4); EOSINOPHILS % 7.4 % (0.0-6.0); HEMATOCRIT 21.7 % (38.2-49.6); LYMPHOCYTES # (AUTO) 1.8 (1.0-3.2); LYMPHOCYTES % 25.2 % (18.0-39.1); MEAN CORPUSCULAR HEMOGLOBIN 31.1 pg (28-32); MEAN CORPUSCULAR HGB CONC 32.3 g/dL (31-35); MEAN CORPUSCULAR VOLUME 96.4 fL (81-99); MONOCYTES # (AUTO) 0.6 (0.2-0.8); MONOCYTES % 8.5 % (4.4-11.3); NEUTROPHILS # (AUTO) 4.2 (2.1-6.9); NEUTROPHILS % 57.7 % (38.7-80.0); PLATELET COUNT 194 x10e3/uL (140-360); RED BLOOD COUNT 2.25 x10e6/uL (4.3-5.7); RED CELL DISTRIBUTION WIDTH 16.3 % (11.7-14.4)
[2021-03-07 06:52] LABS: ALBUMIN 1.9 g/dL (3.5-5.0); ALBUMIN/GLOBULIN RATIO 0.8 (0.8-2.0); ALKALINE PHOSPHATASE 69 IU/L (40-150); ANION GAP 17.4 mmol/L (8-16); BLOOD UREA NITROGEN 47 mg/dL (7-26); BUN/CREATININE RATIO 6 (6-25); CALCIUM 7.2 mg/dL (8.4-10.2); CARBON DIOXIDE 24 mmol/L (22-29); CHLORIDE 98 mmol/L (98-107); CREATININE, SERUM 7.76 mg/dL (0.72-1.25); EST GLOMERULAR FILTRATION RATE 7 ML/MIN (60-); POTASSIUM 3.4 mmol/L (3.5-5.1); SODIUM 136 mmol/L (136-145)
[2021-03-07 06:56] LABS: ALANINE AMINOTRANSFERASE < 6 IU/L (0-55)
[2021-03-07 06:57] LABS: GLUCOSE 54 mg/dL (74-118)
[2021-03-07] MEDS ORDERED: POTASSIUM CHLORIDE 20 MEQ TAB CR PO STA (07:40)
[2021-03-07] MEDS ORDERED: EPOETIN ALFA-EPBX 10,000 UNIT/ML VIAL SC SCH (07:45)
[2021-03-07] MEDS: SUCRALFATE 1 GM/10 ML SUSP PO SCH ×4 (08:51→20:25)
[2021-03-07] MEDS: MIDODRINE HCL 5 MG TABLET PO SCH ×3 (08:52→16:42)
[2021-03-07] MEDS: AMIODARONE HCL 200 MG TAB PO SCH ×2 (08:53→16:42)
[2021-03-07] MEDS: FLUDROCORTISONE ACETATE 0.1 MG TAB PO SCH (08:53)
[2021-03-07] MEDS: LEVETIRACETAM ORAL SOLUTION 500 MG/5 ML SOLN PO SCH (08:54)
[2021-03-07] MEDS: SODIUM CHLORIDE 1 GM TAB PO SCH ×3 (08:54→20:25)
[2021-03-07] MEDS: COLLAGENASE OINTMENT 30 GM TUBE TP SCH (09:00)
[2021-03-07] MEDS: PANTOPRAZOLE 40 MG 10ML VIAL IV SCH ×2 (09:06→20:25)
[2021-03-07] MEDS ORDERED: POTASSIUM CHLORIDE 20 MEQ TAB CR PO ONE (11:30)
[2021-03-07] MEDS: CALCIUM ACETATE 667 MG GELCAP PO SCH ×2 (12:00→16:42)
[2021-03-07] MEDS: WARFARIN SOD 1 MG TAB PO SCH (16:42)
[2021-03-07] MEDS: ATORVASTATIN 20 MG TAB PO SCH (20:25)
[2021-03-08] VITALS (8 sets, daily range): BP systolic 84–109; BP diastolic 57–70
[2021-03-08] MEDS: LEVOTHYROXINE SODIUM 125 MCG TAB PO SCH (04:58)
[2021-03-08 05:03] LABS: BASOPHILS % 0.6 % (0.0-1.0); EOSINOPHILS # (AUTO) 0.7 (0.0-0.4); EOSINOPHILS % 9.9 % (0.0-6.0); HEMATOCRIT 23.3 % (38.2-49.6); HEMOGLOBIN 7.4 g/dL (14.0-18.0); LYMPHOCYTES # (AUTO) 1.5 (1.0-3.2); LYMPHOCYTES % 21.6 % (18.0-39.1); MEAN CORPUSCULAR HEMOGLOBIN 31.2 pg (28-32); MEAN CORPUSCULAR HGB CONC 31.8 g/dL (31-35); MEAN CORPUSCULAR VOLUME 98.3 fL (81-99); MONOCYTES # (AUTO) 0.6 (0.2-0.8); MONOCYTES % 8.9 % (4.4-11.3); NEUTROPHILS # (AUTO) 4.1 (2.1-6.9); NEUTROPHILS % 58.4 % (38.7-80.0); PLATELET COUNT 194 x10e3/uL (140-360); RED BLOOD COUNT 2.37 x10e6/uL (4.3-5.7); RED CELL DISTRIBUTION WIDTH 16.2 % (11.7-14.4)
[2021-03-08 05:24] LABS: ALBUMIN 2.1 g/dL (3.5-5.0); ALBUMIN/GLOBULIN RATIO 0.9 (0.8-2.0); ANION GAP 15.9 mmol/L (8-16); CALCIUM 7.6 mg/dL (8.4-10.2); CREATININE, SERUM 8.14 mg/dL (0.72-1.25); MAGNESIUM 1.4 MG/DL (1.3-2.1); POTASSIUM 3.9 mmol/L (3.5-5.1)
[2021-03-08 08:03] LABS: INR 1.45; PROTHROMBIN TIME 18.3 seconds (11.9-14.5)
[2021-03-08] MEDS: LEVETIRACETAM ORAL SOLUTION 500 MG/5 ML SOLN PO SCH (08:32)
[2021-03-08] MEDS: SUCRALFATE 1 GM/10 ML SUSP PO SCH ×4 (08:32→20:20)
[2021-03-08] MEDS: MIDODRINE HCL 5 MG TABLET PO SCH ×3 (08:33→16:00)
[2021-03-08] MEDS: COLLAGENASE OINTMENT 30 GM TUBE TP SCH (08:33)
[2021-03-08] MEDS: CALCIUM ACETATE 667 MG GELCAP PO SCH ×3 (08:33→17:49)
[2021-03-08] MEDS: SODIUM CHLORIDE 1 GM TAB PO SCH ×3 (08:33→20:20)
[2021-03-08] MEDS: FLUDROCORTISONE ACETATE 0.1 MG TAB PO SCH (08:33)
[2021-03-08] MEDS: AMIODARONE HCL 200 MG TAB PO SCH ×2 (08:33→17:49)
[2021-03-08] MEDS: PANTOPRAZOLE 40 MG 10ML VIAL IV SCH ×2 (10:19→20:22)
[2021-03-08] MEDS: WARFARIN SOD 1 MG TAB PO SCH (17:49)
[2021-03-08] MEDS: ATORVASTATIN 20 MG TAB PO SCH (20:20)
[2021-03-09] VITALS (7 sets, daily range): BP systolic 80–97; BP diastolic 52–69
[2021-03-09] MEDS: LEVOTHYROXINE SODIUM 125 MCG TAB PO SCH (05:25)
[2021-03-09] MEDS: MIDODRINE HCL 5 MG TABLET PO SCH ×3 (08:20→16:30)
[2021-03-09] MEDS: SUCRALFATE 1 GM/10 ML SUSP PO SCH ×4 (08:20→20:36)
[2021-03-09 08:28] LABS: INR 1.5; PROTHROMBIN TIME 18.8 seconds (11.9-14.5)
[2021-03-09] MEDS: CALCIUM ACETATE 667 MG GELCAP PO SCH ×3 (08:56→17:38)
[2021-03-09] MEDS: FLUDROCORTISONE ACETATE 0.1 MG TAB PO SCH (09:29)
[2021-03-09] MEDS: SODIUM CHLORIDE 1 GM TAB PO SCH (09:29)
[2021-03-09] MEDS: AMIODARONE HCL 200 MG TAB PO SCH ×2 (09:29→17:38)
[2021-03-09] MEDS: LEVETIRACETAM ORAL SOLUTION 500 MG/5 ML SOLN PO SCH ×2 (09:29→17:38)
[2021-03-09] MEDS: PANTOPRAZOLE 40 MG 10ML VIAL IV SCH ×2 (10:15→23:03)
[2021-03-09] MEDS: COLLAGENASE OINTMENT 30 GM TUBE TP SCH (11:42)
[2021-03-09] MEDS: WARFARIN SOD 1 MG TAB PO SCH (17:38)
[2021-03-09] MEDS: ATORVASTATIN 20 MG TAB PO SCH (20:36)
[2021-03-10] VITALS (9 sets, daily range): BP systolic 74–97; BP diastolic 54–73
[2021-03-10] MEDS: LEVOTHYROXINE SODIUM 125 MCG TAB PO SCH (06:17)
[2021-03-10] MEDS: SUCRALFATE 1 GM/10 ML SUSP PO SCH ×4 (06:17→21:14)
[2021-03-10 06:30] LABS: BASOPHILS # (AUTO) 0.1 (0.0-0.1); BASOPHILS % 0.7 % (0.0-1.0); EOSINOPHILS # (AUTO) 0.7 (0.0-0.4); HEMATOCRIT 23.8 % (38.2-49.6); HEMOGLOBIN 7.6 g/dL (14.0-18.0); LYMPHOCYTES # (AUTO) 1.5 (1.0-3.2); LYMPHOCYTES % 21.4 % (18.0-39.1); MEAN CORPUSCULAR HEMOGLOBIN 31.3 pg (28-32); MEAN CORPUSCULAR HGB CONC 31.9 g/dL (31-35); MEAN CORPUSCULAR VOLUME 97.9 fL (81-99); MONOCYTES # (AUTO) 0.7 (0.2-0.8); NEUTROPHILS % 57.2 % (38.7-80.0); PLATELET COUNT 200 x10e3/uL (140-360); RED BLOOD COUNT 2.43 x10e6/uL (4.3-5.7); RED CELL DISTRIBUTION WIDTH 15.7 % (11.7-14.4)
[2021-03-10 06:52] LABS: INR 1.63
[2021-03-10 06:57] LABS: CALCIUM 8.2 mg/dL (8.4-10.2); CREATININE, SERUM 7.56 mg/dL (0.72-1.25)
[2021-03-10] MEDS: MIDODRINE HCL 5 MG TABLET PO SCH ×3 (08:42→16:43)
[2021-03-10] MEDS: CALCIUM ACETATE 667 MG GELCAP PO SCH ×3 (08:42→16:43)
[2021-03-10] MEDS: AMIODARONE HCL 200 MG TAB PO SCH ×2 (08:42→16:43)
[2021-03-10] MEDS: LEVETIRACETAM ORAL SOLUTION 500 MG/5 ML SOLN PO SCH ×2 (08:43→16:43)
[2021-03-10] MEDS: SODIUM CHLORIDE 1 GM TAB PO SCH (08:43)
[2021-03-10] MEDS: FLUDROCORTISONE ACETATE 0.1 MG TAB PO SCH (08:43)
[2021-03-10] MEDS: COLLAGENASE OINTMENT 30 GM TUBE TP SCH (08:43)
[2021-03-10] MEDS: PANTOPRAZOLE 40 MG 10ML VIAL IV SCH ×2 (11:01→21:14)
[2021-03-10] MEDS: WARFARIN SOD 1 MG TAB PO SCH (16:44)
[2021-03-10] MEDS: ATORVASTATIN 20 MG TAB PO SCH (21:14)
[2021-03-11 00:23] VITALS: BP 88/67
[2021-03-11 04:00] VITALS: BP 101/65
[2021-03-11] MEDS: LEVOTHYROXINE SODIUM 125 MCG TAB PO SCH (06:00)
[2021-03-11] MEDS: SUCRALFATE 1 GM/10 ML SUSP PO SCH ×2 (06:10→11:30)
[2021-03-11 06:50] LABS: INR 1.67; PROTHROMBIN TIME 20.4 seconds (11.9-14.5)
[2021-03-11 08:06] VITALS: BP 92/68
[2021-03-11 08:07] VITALS: BP_SYST 101; BP_SYST 92; BP_DIAS 66; BP_DIAS 68
[2021-03-11] MEDS: CALCIUM ACETATE 667 MG GELCAP PO SCH ×2 (08:54→12:00)
[2021-03-11] MEDS: AMIODARONE HCL 200 MG TAB PO SCH (08:54)
[2021-03-11] MEDS: FLUDROCORTISONE ACETATE 0.1 MG TAB PO SCH (08:54)
[2021-03-11] MEDS: MIDODRINE HCL 5 MG TABLET PO SCH ×2 (08:54→12:00)
[2021-03-11] MEDS: LEVETIRACETAM ORAL SOLUTION 500 MG/5 ML SOLN PO SCH (08:55)
[2021-03-11] MEDS: COLLAGENASE OINTMENT 30 GM TUBE TP SCH (08:55)
[2021-03-11] MEDS: SODIUM CHLORIDE 1 GM TAB PO SCH (08:55)
[2021-03-11 11:56] VITALS: BP 83/57
[2021-03-11] MEDS ORDERED: PANTOPRAZOLE SOD 40 MG TABEC PO SCH (21:00)
[2021-03-12] MEDS ORDERED: ATORVASTATIN 20 MG TAB PO SCH (09:00)
[2021-03-12] MEDS ORDERED: ASPIRIN 81 MG CHEW TAB PO SCH (09:00)
== END 2021-03-11 13:09 | disposition home health service (06) | DRG 871 ==
LOC: ER 15:29 → ERHOLD 16:52 → ICU 20:23 → MED/SURG3 03-06 13:14
PROVIDERS: ADMIT Family Medicine; ATTEND Family Medicine
PROC: 02HV33Z Insertion of Infusion Device into Superior Vena Cava, Percutaneous Approach (ICD-10-PCS; principal; 2021-03-01)
PROC: B548ZZA Ultrasonography of Superior Vena Cava, Guidance (ICD-10-PCS; 2021-03-01)
PROC: 3E043XZ Introduction of Vasopressor into Central Vein, Percutaneous Approach (ICD-10-PCS; 2021-03-01)
PROC: 30243N1 Transfusion of Nonautologous Red Blood Cells into Central Vein, Percutaneous Approach (ICD-10-PCS; 2021-03-03)
PROC: 3E1M39Z Irrigation of Peritoneal Cavity using Dialysate, Percutaneous Approach (ICD-10-PCS; 2021-03-04)
PROC: 3E1M39Z Irrigation of Peritoneal Cavity using Dialysate, Percutaneous Approach (ICD-10-PCS; 2021-03-06)
PROC: 3E1M39Z Irrigation of Peritoneal Cavity using Dialysate, Percutaneous Approach (ICD-10-PCS; 2021-03-07)
PROC: 3E1M39Z Irrigation of Peritoneal Cavity using Dialysate, Percutaneous Approach (ICD-10-PCS; 2021-03-09)
PROC: 3E1M39Z Irrigation of Peritoneal Cavity using Dialysate, Percutaneous Approach (ICD-10-PCS; 2021-03-10)
DX: A41.9 Sepsis, unspecified organism (principal); L89.213 Pressure ulcer of right hip, stage 3; L89.153 Pressure ulcer of sacral region, stage 3; R65.21 Severe sepsis with septic shock; I50.23 Acute on chronic systolic (congestive) heart failure; N18.6 End stage renal disease; I13.2 Hypertensive heart and chronic kidney disease with heart failure and with stage 5 chronic kidney disease, or end stage renal disease; L97.119 Non-pressure chronic ulcer of right thigh with unspecified severity; E44.0 Moderate protein-calorie malnutrition; K92.2 Gastrointestinal hemorrhage, unspecified; Z99.2 Dependence on renal dialysis; Z95.810 Presence of automatic (implantable) cardiac defibrillator; Z96.652 Presence of left artificial knee joint; R09.02 Hypoxemia; I48.0 Paroxysmal atrial fibrillation; Z95.5 Presence of coronary angioplasty implant and graft; E03.9 Hypothyroidism, unspecified; D64.9 Anemia, unspecified; Z83.3 Family history of diabetes mellitus; R56.9 Unspecified convulsions; Z74.01 Bed confinement status; R53.81 Other malaise; G90.9 Disorder of the autonomic nervous system, unspecified; R62.7 Adult failure to thrive; I35.0 Nonrheumatic aortic (valve) stenosis; H47.012 Ischemic optic neuropathy, left eye; R19.7 Diarrhea, unspecified; Z68.25 Body mass index [BMI] 25.0-25.9, adult; H35.031 Hypertensive retinopathy, right eye; E87.6 Hypokalemia; E83.39 Other disorders of phosphorus metabolism; Z20.822 Contact with and (suspected) exposure to COVID-19
CPT/HCPCS: 36415; 36600; 71045; 74176; 74470; 76882; 80048; 80053; 80061; 80076; 82150; 82270; 82550; 82553; 82607; 82728; 82746; 82948; 83036; 83540; 83605; 83630; 83690; 83735; 83880; 83993; 84100; 84466; 84484; 84550; 85014; 85018; 85025; 85045; 85610; 85651; 85730; 86140; 86705; 86706; 86850; 86900; 86920; 87040; 87045; 87070; 87177; 87205; 87340; 87493; 89051; 93005; 93306; 93880; 93970; 95812; 97139; 99251; 99284; J0692; J1170; J1817; J2060; J2270; J2930; J3370; J3480; J3486; J7030; J7050; J7070; P9016; P9045; P9047; U0002

== ENCOUNTER 2021-04-09 03:08 | Emergency (ER) | payer MEDICARE, OTHER ==
[~2021-04-09] VITALS: Ht 177.8 cm; Wt 81.2 kg
[~2021-04-09 03:08] MED LIST changes: +CEPHALEXIN250 MG PO; +COLLAGENASE TOP; +RENVELA0.8 GM PO
[2021-04-09] MEDS ORDERED: MIDODRINE 2.5 MG TAB PO ONE (04:00)
== END 2021-04-09 05:45 | disposition home or self-care (01) ==
LOC: ER 03:26
DX: L89.152 Pressure ulcer of sacral region, stage 2 (principal); L89.212 Pressure ulcer of right hip, stage 2; L89.892 Pressure ulcer of other site, stage 2; N18.6 End stage renal disease; G90.9 Disorder of the autonomic nervous system, unspecified; I95.89 Other hypotension; Z95.5 Presence of coronary angioplasty implant and graft; Z95.810 Presence of automatic (implantable) cardiac defibrillator
CPT/HCPCS: 99283

== ENCOUNTER 2021-04-14 12:54 | Inpatient (IN) | payer MEDICARE, OTHER ==
[~2021-04-14] VITALS: Ht 180.3 cm; Wt 90.7 kg
[2021-04-14] MEDS ORDERED: SODIUM CHLORIDE 0.9% 500ML 500 ML ONE ×2 (13:56→15:35)
[2021-04-14] MEDS ORDERED: VECURONIUM BROMIDE FOR INJ 20 MG VIAL ONE (14:11)
[2021-04-14] MEDS ORDERED: ETOMIDATE 2 MG/ML 10 ML INJ IV ONE (14:11)
[2021-04-14] MEDS ORDERED: WATER STERILE 10 ML VIAL ONE (14:11)
[2021-04-14] MEDS ORDERED: FLUMAZENIL 0.5MG/ 5ML VIAL ONE (14:11)
[2021-04-14] MEDS ORDERED: EPINEPHRINE HCL SYRINGE ONE (14:11)
[2021-04-14 14:14] LABS: BASOPHILS # (AUTO) 0.1 (0.0-0.1); BASOPHILS % 0.2 % (0.0-1.0); EOSINOPHILS # (AUTO) 0.1 (0.0-0.4); EOSINOPHILS % 0.3 % (0.0-6.0); HEMATOCRIT 27.9 % (38.2-49.6); HEMOGLOBIN 9.1 g/dL (14.0-18.0); LYMPHOCYTES # (AUTO) 0.8 (1.0-3.2); LYMPHOCYTES % 3.4 % (18.0-39.1); MEAN CORPUSCULAR HEMOGLOBIN 29.7 pg (28-32); MEAN CORPUSCULAR HGB CONC 32.6 g/dL (31-35); MEAN CORPUSCULAR VOLUME 91.2 fL (81-99); MONOCYTES # (AUTO) 0.9 (0.2-0.8); MONOCYTES % 3.6 % (4.4-11.3); NEUTROPHILS # (AUTO) 21.8 (2.1-6.9); NEUTROPHILS % 89.9 % (38.7-80.0); PLATELET COUNT 329 x10e3/uL (140-360); RED BLOOD COUNT 3.06 x10e6/uL (4.3-5.7); RED CELL DISTRIBUTION WIDTH 14.5 % (11.7-14.4)
[2021-04-14 14:32] LABS: ALBUMIN 1.3 g/dL (3.5-5.0); ALBUMIN/GLOBULIN RATIO 0.4 (0.8-2.0); ANION GAP 28.5 mmol/L (8-16); CALCIUM 7.3 mg/dL (8.4-10.2); CREATININE, SERUM 7.86 mg/dL (0.72-1.25); MAGNESIUM 1.6 MG/DL (1.3-2.1)
[2021-04-14] MEDS ORDERED: PIPERACILLIN/TAZOBACTAM 2.25 GM in SODIUM CHLORIDE 0.9% 50ML 50 ML IV STA (14:32)
[2021-04-14 14:35] LABS: POTASSIUM 2.5 mmol/L (3.5-5.1)
[2021-04-14 14:39] LABS: CREATINE KINASE MB 26.8 ng/mL (0-5.0)
[2021-04-14 14:41] LABS: B-TYPE NATRIURETIC PEPTIDE2 243.6 pg/mL (0-100)
[2021-04-14] MEDS ORDERED: DEXTROSE 50% SYRINGE 50 ML IV ONE ×2 (14:45→14:46)
[2021-04-14] MEDS ORDERED: Vancomycin IV 1 GM in SODIUM CHLORIDE 0.9% 250ML 250 ML IV ONE ×2 (14:45→16:45)
[2021-04-14 15:14] LABS: CLARITY,URINE TURBID (CLEAR); COLOR,URINE AMBER (YELLOW); LEUKOCYTE ESTERASE ,URINE SMALL (NEGATIVE); NITRITE,URINE POSITIVE (NEGATIVE); PROTEIN,URINE DIPSTICK 2+ (NEGATIVE)
[2021-04-14 15:15] LABS: BACTERIA,URINE MODERATE /HPF; KETONES,URINE 1+ (NEGATIVE); URINE UROBILINOGEN 0.2 mg/dL (0.2 - 1)
[2021-04-14] MEDS ORDERED: NOREPINEPHRINE INJ 4MG/4ML 8 MG in DEXTROSE 5% 250ML 250 ML IV SCH (15:15)
[2021-04-14 15:16] LABS: EPITHELIAL CELLS,URINE RARE /LPF
[2021-04-14 15:51] LABS: PARTIAL THROMBOPLASTIN TIME 189.9 seconds (23.8-35.5); PROTHROMBIN TIME > 120.1 seconds (11.9-14.5)
[2021-04-14] MEDS ORDERED: Vancomycin IV 1 GM VIAL ONE (16:07)
[2021-04-14] MEDS: NOREPINEPHRINE 8 MG/D5W 250 ML 250 ML IV SCH ×2 (16:09→16:25)
[2021-04-14] MEDS ORDERED: PHYTONADIONE 10 MG/ML AMP SC ONE (16:15)
[2021-04-14] MEDS ORDERED: SEVELAMER CARBONATE 800 MG TAB PO SCH (17:00)
[2021-04-14] MEDS ORDERED: DEXTROSE 10% 1,000 ML IV SCH (17:45)
[2021-04-14] MEDS ORDERED: MIDODRINE HCL 5 MG TABLET PO SCH (18:00)
[2021-04-14] MEDS ORDERED: DEXTROSE 50% SYRINGE 50 ML IV PRN (18:15)
[2021-04-14] MEDS ORDERED: SODIUM CHLORIDE 0.9% 1000ML 1,000 ML IV SCH (19:15)
[2021-04-14] MEDS ORDERED: SODIUM BICARBONATE 8.4% 150 ML in DEXTROSE 5% 1,000 ML IV ONE (19:15)
[2021-04-14] MEDS ORDERED: POTASSIUM CHLORIDE 20MEQ/100ML 200 ML IV ONE (19:45)
[2021-04-14] MEDS ORDERED: SODIUM CHLORIDE 0.9% 250ML 250 ML ONE (20:20)
[2021-04-14 21:00] VITALS: BP 64/56
[2021-04-14 21:10] VITALS: BP 64/56
[2021-04-14] MEDS ORDERED: CALCIUM CHLORIDE 10% SYRINGE 10 ML IV ONE (21:54)
[2021-04-14] MEDS ORDERED: PIPERACILLIN/TAZOBACTAM 2.25 GM in SODIUM CHLORIDE 0.9% 50ML 50 ML IV SCH (22:00)
[2021-04-14] MEDS ORDERED: MIDAZOLAM HCL 5MG/ML 10ML VIAL 100 ML IV ONE (22:06)
[2021-04-14] MEDS ORDERED: FENTANYL 2000MCG/NS 250 250 ML ONE (22:07)
[2021-04-14 22:23] LABS: BASOPHILS # (AUTO) 0.1 (0.0-0.1); BASOPHILS % 0.3 % (0.0-1.0); EOSINOPHILS % 0.1 % (0.0-6.0); HEMATOCRIT 27.6 % (38.2-49.6); HEMOGLOBIN 7.8 g/dL (14.0-18.0); LYMPHOCYTES # (AUTO) 2.5 (1.0-3.2); LYMPHOCYTES % 8.5 % (18.0-39.1); MEAN CORPUSCULAR HEMOGLOBIN 29.7 pg (28-32); MEAN CORPUSCULAR HGB CONC 28.3 g/dL (31-35); MONOCYTES # (AUTO) 1.3 (0.2-0.8); MONOCYTES % 4.3 % (4.4-11.3); NEUTROPHILS # (AUTO) 24.4 (2.1-6.9); NEUTROPHILS % 82.6 % (38.7-80.0); PLATELET COUNT 349 x10e3/uL (140-360); RED BLOOD COUNT 2.63 x10e6/uL (4.3-5.7); RED CELL DISTRIBUTION WIDTH 14.7 % (11.7-14.4)
[2021-04-14 22:30] VITALS: BP 73/54
[2021-04-14 22:41] LABS: INR 12.15; PARTIAL THROMBOPLASTIN TIME 158.3 seconds (23.8-35.5); PROTHROMBIN TIME 97.1 seconds (11.9-14.5)
[2021-04-14 22:42] LABS: MEAN CORPUSCULAR VOLUME 104.9 fL (81-99)
[2021-04-14 22:44] LABS: ALBUMIN 1.2 g/dL (3.5-5.0); ALBUMIN/GLOBULIN RATIO 0.4 (0.8-2.0); ANION GAP 36.1 mmol/L (8-16); CREATININE, SERUM 8.01 mg/dL (0.72-1.25)
[2021-04-14 23:00] LABS: POTASSIUM 3.1 mmol/L (3.5-5.1)
[2021-04-14 23:01] LABS: CALCIUM 9.1 mg/dL (8.4-10.2)
[2021-04-14] MEDS ORDERED: SODIUM CHLORIDE 0.9% 250ML 250 ML IV ONE (23:15)
[2021-04-14] MEDS ORDERED: HYDROCORTISONE SOD SUCCINATE 100 MG VIAL IV ONE (23:30)
[2021-04-14] MEDS ORDERED: LEVOTHYROXINE SODIUM 100 MCG/VIAL IV ONE (23:30)
[2021-04-15] MEDS ORDERED: LEVOTHYROXINE SODIUM 125 MCG TAB PO SCH (06:00)
[2021-04-15] MEDS ORDERED: AMIODARONE HCL 200 MG TAB PO SCH (09:00)
[2021-04-15] MEDS ORDERED: ASPIRIN 81 MG CHEW TAB PO SCH (09:00)
[2021-04-16] MEDS ORDERED: LEVOTHYROXINE SODIUM 100 MCG/VIAL IV SCH (06:00)
== END 2021-04-15 05:38 | disposition expired | DRG 871 ==
LOC: ER 13:02 → ERHOLD 18:06 → ICU 20:42
PROVIDERS: ADMIT Internal Medicine; ATTEND Internal Medicine
PROC: 02HV33Z Insertion of Infusion Device into Superior Vena Cava, Percutaneous Approach (ICD-10-PCS; principal; 2021-04-14)
PROC: B548ZZA Ultrasonography of Superior Vena Cava, Guidance (ICD-10-PCS; 2021-04-14)
PROC: 5A1935Z Respiratory Ventilation, Less than 24 Consecutive Hours (ICD-10-PCS; 2021-04-14)
PROC: 0BH17EZ Insertion of Endotracheal Airway into Trachea, Via Natural or Artificial Opening (ICD-10-PCS; 2021-04-14)
PROC: 5A12012 Performance of Cardiac Output, Single, Manual (ICD-10-PCS; 2021-04-14)
PROC: 5A2204Z Restoration of Cardiac Rhythm, Single (ICD-10-PCS; 2021-04-14)
DX: A41.9 Sepsis, unspecified organism (principal); N18.6 End stage renal disease; R65.21 Severe sepsis with septic shock; I13.2 Hypertensive heart and chronic kidney disease with heart failure and with stage 5 chronic kidney disease, or end stage renal disease; I50.22 Chronic systolic (congestive) heart failure; Z99.2 Dependence on renal dialysis; L89.150 Pressure ulcer of sacral region, unstageable; L89.892 Pressure ulcer of other site, stage 2; L89.890 Pressure ulcer of other site, unstageable; I48.91 Unspecified atrial fibrillation; E03.9 Hypothyroidism, unspecified; I25.10 Atherosclerotic heart disease of native coronary artery without angina pectoris; Z87.440 Personal history of urinary (tract) infections; Z79.01 Long term (current) use of anticoagulants; Z95.810 Presence of automatic (implantable) cardiac defibrillator; Z95.1 Presence of aortocoronary bypass graft; Z95.5 Presence of coronary angioplasty implant and graft; Z96.652 Presence of left artificial knee joint; T45.515A Adverse effect of anticoagulants, initial encounter; D64.9 Anemia, unspecified; G90.9 Disorder of the autonomic nervous system, unspecified; H47.019 Ischemic optic neuropathy, unspecified eye; I73.9 Peripheral vascular disease, unspecified; E16.2 Hypoglycemia, unspecified; I46.9 Cardiac arrest, cause unspecified
CPT/HCPCS: 31500; 36415; 51700; 70450; 71045; 72125; 72170; 80053; 81001; 82550; 82553; 82948; 83605; 83735; 83880; 84484; 85025; 85610; 85730; 86850; 86900; 86920; 87040; 87071; 87086; 87186; 87205; 92950; 93005; 94002; 99285; J0171; J2543; J3370; J3430; J3480; J7030; J7040; J7050; J7070; J7799; P9017